=== PATIENT | male | born 1935 | race Caucasian/White ===

== ENCOUNTER → 2017-04-13 09:47 | Outpatient (CLI) | payer MEDICARE, OTHER, SELFPAY ==
--- NOTE | 2017-04-13 09:59 | PCM.CR.HP2 ---
CR - History & Physical - General Arrival date:: 04/13/17 Arrival time:: 09:59 Date of Admission: 04/13/17 Referring Physician: Dr. Grady Schmidt Primary Diagnosis: MCABGx3 at [facility] - History of Present Cardiac Event Onset Date: Enter Onset Date of cardiac illnesses in Comment field below CABG:: Yes - 01/16/2017 @ [facility] Type of Symptoms:: Atrial fibrillation, acute systolic heart failure, and multi-vessel coroanry disease. Seen by DR. Schmidt locally and transfer to Dr. Rakesh Goff at [facility]. Interventions with present event:: Diagnostic procedures, to a [facility] and subsequent CABG Were there any complications?: Transfer to [facility] for rehab then home. - Medications Home Medications: Ambulatory Orders Medication Instructions Recorded Furosemide [Lasix] 40 mg PO DAILY 01/06/17 Aspirin [Aspirin, Baby] 81 mg PO DAILY 01/24/17 Acetaminophen [Tylenol] 1,000 mg PO Q8H PRN PRN tablet 02/02/17 Atorvastatin Calcium [Lipitor] 40 mg PO QHS #30 02/02/17 Carvedilol [Coreg] 3.125 mg PO BID #60 02/02/17 Iron Polysaccharide Complex 150 mg PO DAILYCM #30 capsule 02/02/17 [Ferrex 150] Mirtazapine [Remeron] 7.5 mg PO QHS #30 02/02/17 Pramipexole Di-HCl [Mirapex] 1 mg PO QHS #30 02/02/17 Lisinopril [Zestril] 2.5 mg PO DAILY 02/05/17 Amiodarone HCl [Cordarone] 200 mg PO DAILY 04/13/17 Atorvastatin Calcium [Lipitor] 40 mg PO QHS 04/13/17 Pramipexole Di-HCl [Mirapex] 1 mg PO 04/13/17 - Allergies Allergies/Adverse Reactions: Allergies Sulfa (Sulfonamide Antibiotics) Allergy (Verified 02/05/17 10:23) Other SKIN SLOUGHING - Sleep Disorder Evaluation Hx of Sleep Apnea: No Do you snore loudly (louder than talking or can be heard through closed doors)?: Yes Do you often feel tired/ fatigued/ sleepy during daytime?: Yes Has anyone observed you stop breathing during sleep?: Yes History of Hypertension (for STOP score): Yes STOP Results: Positive Advanced Directives - Advanced Directives Power of Management Supervisor: No Living Will: No Advance Directives Information Provided: Yes Advance Directives on File: No DNR Order?:: No Past Medical History - Problems and Co-Morbidities Problems & Co-Morbidities: Smoking - former smoker quit in 1992; 1ppd for since age 18 yr old., Dyslipidemia, Hypertension - Past Medical Illness Past Medical Illness: Kidney/Renal Problems - chronic kidney disease Other Medical Illnesses:: atrophy of prostate, diverticulitis of colon, restless leg syndrome. - Past Cardiac Illness Past Cardiac Illness: Arrhythmias - poraxysmal atrial fibrillation, Ejection Fraction - 44% per ECHO 02/12/2017, Coronary Artery Disease - Other Other: Vision/Eye Problems - Cardiology Procedures/Interventions Cardiology Procedures/Interventions: Angioplasty, Heart Catheterization, Echocardiogram - Past Surgical History Surgical History: coronary bypass surgery - x 3. - Family History Summary Additional Family History: Mother-HTN, Father-COPD, Brother-Arthritis, Ischemic Heart Disease, CABG. Review of Systems - Review of Systems Hints: Right click = Denies (Slash). Left click = Reports ([place]) Review of Present Symptoms: Reports: Wound Healing, Dizziness/Lightheadedness - once in a blue hale, if stand to quickly from seated position., Fatigue, Heart Arrhythmia/Irregularities - paroxysmal atrial fibrillation resolved on own. Has been examined twice and remians in normal rhythm., Appetite - Normal, Appetite - Special Diet - watch sodium intake; dietitian in [facility] gave guidelines for cardiac diet., Sleep - Normal. Denies: Shortness of Breath at Rest, Shortness of Breath with Exertion - prior to surgery, very short of breath and was treating for swollen ankles., Operative Discomfort, Sexual Changes Risk Factor Assessment - Chief Complaint Chief Complaint: Patient presents to cardiac rehab today on the referral from Dr. Rakesh Goff in [place]. Patient is treate locally by Dr. Grady Schmidt and Dr. Eric Johns III. Patient is a pleasant 81 yr old accompanied by his today. - Pulse Pulse Rate: 60 Pulse Rhythm: Regular - Hypertension How long have you been treated?: no past history, recently controlled. Blood Pressure Sitting - Right Arm: 118/60 - Diabetes Nutrition Referral for Diabetes: No - Obesity Height: 5 ft 11 in Weight:: 76 kg Weight in Pounds: 167.6 lbs Body Mass Index (BMI): 23.3 Nutritional Referral for Obesity: No - Physical Inactivity Physical Inactivity: Reg Exercise 30 min/day - stretching and bands given instruction from Rehab, climbs stairs, active lifestyle. - Risk Stratification Risk Guidelines: Lowest Risk: Risk Factor for Smoking, Risk Factor for Dyslipidemia, Risk Factor for Diabetes, Risk Factor for Obesity, Risk Factor for Hypertension, Risk Factor for Depression, Moderate Risk: Risk Factor for Sedentary Lifestyle - For Smoking Smoking Risk Guidelines: Smoking Low Risk: None or quit greater than 6 months ago. Smoking Moderate Risk: Smoker or quit 6 months or less ago. Smoking High Risk: Smoker - For Dyslipidemia Dyslipidemia Risk Guidelines: Low Risk: Moderate Risk: High Risk: 15-25% fat 25.1-29% fat >/= 30% fat. <7% sat fat 7-9% sat fat >9% sat fat. <150 mg chol 150-299 mg chol >/= 300 mg chol. LDL <100 LDL 100-129 LDL >/= 130. Chol/HDL ratio <5.0 Chol/HDL ratio 5.0-6.0 Chol/HDL ratio >6.0. Triglycerides <100 Triglycerides 100-149 Triglycerides >/= 150 - For Diabetes Mellitus Diabetes Risk Guidelines: Diabetes Low Risk: HgA1c <6.5% and/or FBG <120. Diabetes Moderate Risk: HgA1c 6.6-7.9% and/or FBG 120-180. Diabetes High Risk: HgA1c >/= 8% and/or FBG >180 - For Obesity/Overweight Obesity/Overweight Risk Guidelines: Obesity Low Risk: BMI <25.0. Obesity Moderate Risk: BMI 25-29.9. Obesity High Risk: BMI >/= 30.0 - For Hypertension Hypertension Risk Guidelines: Hypertension Low Risk: Systolic <120 and Diastolic <80. Hypertension Moderate Risk: Systolic 120-139 and Diastolic 80-89. Hypertension High Risk: Systolic >/= 140 and Diastolic >/= 90 - For Sedentary Lifestyle Sedentary Lifestyle Risk Guidelines: Sedentary Lifestyle Low Risk: >/= 1,500 kcal/week. Sedentary Lifestyle Moderate Risk: 700-1,499 kcal/week. Sedentary Lifestyle High Risk: < 700 kcal/week - For Depression Depression Risk Guidelines: Depression Low Risk: Not clinically depressed. Depression Moderate Risk: Mildly depressed. Depression High Risk: Clinically depressed Social History - Smoking History Smoking Status: Former smoker Hx Smoking Cessation Date: 04/07/1992 Hx Tobacco Use: Yes Hx Smoking Exposure: No - Alcohol Use Alcohol Usage: No - Substance Abuse Hx Substance Use: No - Occupation Occupation (List type of work in comments):: Retired - Hobbies, Recreation, Social Activities Hobbies: Walking, Other - fishing, tinkering with small power equipment Recreational Activities: I am able to engage in most, but not all activities Marital Status - Status Marital Status: - Current Living Arrangements Living Environment:: Spouse - Children How many children do you have?: 5 Do any of your children live nearby?: Yes - 2 live locally - Safety Do you feel safe in your surroundings?: Yes - Assistance Do you need any assistance at home?: none
--- NOTE | 2017-04-13 10:10 | CR.HP_ITS ---
CR - History & Physical - General Arrival date:: 04/13/17 Arrival time:: 09:59 Date of Admission: 04/13/17 Referring Physician: Dr. Grady Schmidt Primary Diagnosis: MCABGx3 at [facility] - History of Present Cardiac Event Onset Date: Enter Onset Date of cardiac illnesses in Comment field below CABG:: Yes - 01/16/2017 @ [facility] Type of Symptoms:: Atrial fibrillation, acute systolic heart failure, and multi- vessel coroanry disease. Seen by DR. Schmidt locally and transfer to Dr. Rakesh Goff at [facility]. Interventions with present event:: Diagnostic procedures, to a [facility] and subsequent CABG Were there any complications?: Transfer to [facility] for rehab then home. - Medications Home Medications: Ambulatory Orders Medication Instructions Recorded Furosemide [Lasix] 40 mg PO DAILY 01/06/17 Aspirin [Aspirin, Baby] 81 mg PO DAILY 01/24/17 Acetaminophen [Tylenol] 1,000 mg PO Q8H PRN PRN tablet 02/02/17 Atorvastatin Calcium [Lipitor] 40 mg PO QHS #30 02/02/17 Carvedilol [Coreg] 3.125 mg PO BID #60 02/02/17 Iron Polysaccharide Complex 150 mg PO DAILYCM #30 capsule 02/02/17 [Ferrex 150] Mirtazapine [Remeron] 7.5 mg PO QHS #30 02/02/17 Pramipexole Di-HCl [Mirapex] 1 mg PO QHS #30 02/02/17 Lisinopril [Zestril] 2.5 mg PO DAILY 02/05/17 Amiodarone HCl [Cordarone] 200 mg PO DAILY 04/13/17 Atorvastatin Calcium [Lipitor] 40 mg PO QHS 04/13/17 Pramipexole Di-HCl [Mirapex] 1 mg PO 04/13/17 - Allergies Allergies/Adverse Reactions: Allergies Sulfa (Sulfonamide Antibiotics) Allergy (Verified 02/05/17 10:23) Other SKIN SLOUGHING - Sleep Disorder Evaluation Hx of Sleep Apnea: No Do you snore loudly (louder than talking or can be heard through closed doors)? : Yes Do you often feel tired/ fatigued/ sleepy during daytime?: Yes Has anyone observed you stop breathing during sleep?: Yes History of Hypertension (for STOP score): Yes STOP Results: Positive Advanced Directives - Advanced Directives Power of Environmental Services Specialist: No Living Will: No Advance Directives Information Provided: Yes Advance Directives on File: No DNR Order?:: No Past Medical History - Problems and Co-Morbidities Problems & Co-Morbidities: Smoking - former smoker quit in 1992; 1ppd for since age 18 yr old., Dyslipidemia, Hypertension - Past Medical Illness Past Medical Illness: Kidney/Renal Problems - chronic kidney disease Other Medical Illnesses:: atrophy of prostate, diverticulitis of colon, restless leg syndrome. - Past Cardiac Illness Past Cardiac Illness: Arrhythmias - poraxysmal atrial fibrillation, Ejection Fraction - 44% per ECHO 02/12/2017, Coronary Artery Disease - Other Other: Vision/Eye Problems - Cardiology Procedures/Interventions Cardiology Procedures/Interventions: Angioplasty, Heart Catheterization, Echocardiogram - Past Surgical History Surgical History: coronary bypass surgery - x 3. - Family History Summary Additional Family History: Mother-HTN, Father-COPD, Brother-Arthritis, Ischemic Heart Disease, CABG. Review of Systems - Review of Systems Hints: Right click = Denies (Slash). Left click = Reports ([place]) Review of Present Symptoms: Reports: Wound Healing, Dizziness/Lightheadedness - once in a blue hale, if stand to quickly from seated position., Fatigue, Heart Arrhythmia/Irregularities - paroxysmal atrial fibrillation resolved on own. Has been examined twice and remians in normal rhythm., Appetite - Normal, Appetite - Special Diet - watch sodium intake; dietitian in [facility] gave guidelines for cardiac diet., Sleep - Normal. Denies: Shortness of Breath at Rest, Shortness of Breath with Exertion - prior to surgery, very short of breath and was treating for swollen ankles., Operative Discomfort, Sexual Changes Risk Factor Assessment - Chief Complaint Chief Complaint: Patient presents to cardiac rehab today on the referral from Dr. Rakesh Goff in [place]. Patient is treate locally by Dr. Grady Schmidt and Dr. Eric Johns III. Patient is a pleasant 81 yr old accompanied by his today. - Pulse Pulse Rate: 60 Pulse Rhythm: Regular - Hypertension How long have you been treated?: no past history, recently controlled. Blood Pressure Sitting - Right Arm: 118/60 - Diabetes Nutrition Referral for Diabetes: No - Obesity Height: 5 ft 11 in Weight:: 76 kg Weight in Pounds: 167.6 lbs Body Mass Index (BMI): 23.3 Nutritional Referral for Obesity: No - Physical Inactivity Physical Inactivity: Reg Exercise 30 min/day - stretching and bands given instruction from Rehab, climbs stairs, active lifestyle. - Risk Stratification Risk Guidelines: Lowest Risk: Risk Factor for Smoking, Risk Factor for Dyslipidemia, Risk Factor for Diabetes, Risk Factor for Obesity, Risk Factor for Hypertension, Risk Factor for Depression, Moderate Risk: Risk Factor for Sedentary Lifestyle - For Smoking Smoking Risk Guidelines: Smoking Low Risk: None or quit greater than 6 months ago. Smoking Moderate Risk: Smoker or quit 6 months or less ago. Smoking High Risk: Smoker - For Dyslipidemia Dyslipidemia Risk Guidelines: Low Risk: Moderate Risk: High Risk: 15-25% fat 25.1-29% fat >/= 30% fat. <7% sat fat 7-9% sat fat >9% sat fat. <150 mg chol 150-299 mg chol >/= 300 mg chol. LDL <100 LDL 100-129 LDL >/= 130. Chol/HDL ratio <5.0 Chol/HDL ratio 5.0-6.0 Chol/HDL ratio >6.0. Triglycerides <100 Triglycerides 100-149 Triglycerides >/= 150 - For Diabetes Mellitus Diabetes Risk Guidelines: Diabetes Low Risk: HgA1c <6.5% and/or FBG <120. Diabetes Moderate Risk: HgA1c 6.6-7.9% and/or FBG 120-180. Diabetes High Risk: HgA1c >/= 8% and/or FBG >180 - For Obesity/Overweight Obesity/Overweight Risk Guidelines: Obesity Low Risk: BMI <25.0. Obesity Moderate Risk: BMI 25-29.9. Obesity High Risk: BMI >/= 30.0 - For Hypertension Hypertension Risk Guidelines: Hypertension Low Risk: Systolic <120 and Diastolic <80. Hypertension Moderate Risk: Systolic 120-139 and Diastolic 80-89. Hypertension High Risk: Systolic >/= 140 and Diastolic >/= 90 - For Sedentary Lifestyle Sedentary Lifestyle Risk Guidelines: Sedentary Lifestyle Low Risk: >/= 1 ,500 kcal/week. Sedentary Lifestyle Moderate Risk: 700-1,499 kcal/week. Sedentary Lifestyle High Risk: < 700 kcal/week - For Depression Depression Risk Guidelines: Depression Low Risk: Not clinically depressed. Depression Moderate Risk: Mildly depressed. Depression High Risk: Clinically depressed Social History - Smoking History Smoking Status: Former smoker Hx Smoking Cessation Date: 04/07/1992 Hx Tobacco Use: Yes Hx Smoking Exposure: No - Alcohol Use Alcohol Usage: No - Substance Abuse Hx Substance Use: No - Occupation Occupation (List type of work in comments):: Retired - Hobbies, Recreation, Social Activities Hobbies: Walking, Other - fishing, tinkering with small power equipment Recreational Activities: I am able to engage in most, but not all activities Marital Status - Status Marital Status: - Current Living Arrangements Living Environment:: Spouse - Children How many children do you have?: 5 Do any of your children live nearby?: Yes - 2 live locally - Safety Do you feel safe in your surroundings?: Yes - Assistance Do you need any assistance at home?: none
--- NOTE | 2017-04-13 10:12 | CR.ITP_ITS ---
Exercise - Initial Assessment - Visit Date of Eval: 04/13/17 - Stages of Change Stages of Change:: Action - Exercise Prescription Mode:: Treadmill, Rower, Airdyne, NuStep Angina with exercise?: No Target Heart Rate:: 97-104 - Hypertension Do any of the following apply?: Yes Resting Blood Pressure:: 118/60 - Intervention Home Exercise/Activity Goal:: Sitting Time <3 hrs/day - Education Goals:: Warm-up, RPE ABIMAEL Scale, S/S, Safe Exercise, Self-Monitoring - Exercise Program Goals Exercise Program Goals: Aerobic Activity >30 min Nutrition - Initial Assessment - Program Goals Nutrition Program Goals: LDL <70. Total Cholesterol <200. HDL >45. Triglycerides <150. HgbA1C <7%. BMI <25 - Visit Date of Assessment:: 04/13/17 - Stages of Change Stages of Change:: Action - Diabetes Diabetes:: No Insulin: No Non-Insulin Dependent?: No Do you monitor your blood sugar at home?: No - Weight Management Height: 5 ft 11 in Weight:: 76 kg Body Fat %:: 23 - Intervention Referral to dietitian:: No Referral to Diabetic Clinic:: No Will attend diet classes:: Yes - Education Gave educational materials for:: Healthy eating Nutrition - 30-Day Assessment - Program Goals Nutrition Program Goals: LDL <70. Total Cholesterol <200. HDL >45. Triglycerides <150. HgbA1C <7%. BMI <25 - Diabetes Diabetes:: No Nutrition - 60-Day Assessment - Program Goals Nutrition Program Goals: LDL <70. Total Cholesterol <200. HDL >45. Triglycerides <150. HgbA1C <7%. BMI <25 - Diabetes Diabetes:: No Nutrition - 90-Day Assessment - Program Goals Nutrition Program Goals: LDL <70. Total Cholesterol <200. HDL >45. Triglycerides <150. HgbA1C <7%. BMI <25 - Diabetes Diabetes:: No Nutrition - Final Assessment - Program Goals Nutrition Program Goals: LDL <70. Total Cholesterol <200. HDL >45. Triglycerides <150. HgbA1C <7%. BMI <25 - Diabetes Diabetes:: No Tobacco - Initial Assessment - Program Goals Tobacco Program Goals: Complete smoking cessation. Attend education classes. Improve Knowledge Test score - Stage of Change Stages of Change:: Action - Learning Barriers Learning Barriers: Vision, Ready to Learn - Family Support Do you have family support?: Yes - Tobacco Use Tobacco Use: Non-smoker How long ago did you quit using tobacco products?: Greater than or equal to 6 months ago - 04/07/1992 Do you use smokeless tobacco?: No - Intervention Smoking Cessation Referral:: No Individual Education/Counseling:: No Education Schedule Given:: Yes - Education Gave educational material for:: Coronary artery disease, Risk factors, Sexuality , Medical compliance, Cardiac A&P, Angina signs & symptoms Psychosocial - Initial Assess - Target Goals Target Goals: Assess presence or absence of depression. Using a valid screening tool, maximizes coping skills. Positive support system - Stages of Change Stages of Change:: Action - Psychosocial Test Tool Used:: HANDS Depression Questionnaire - Intervention PS - Interventions: Yes Attend Stress Management Classes, No Referral to Mental Health, No Referral to [facility] Case Management, No Referral to Physician, No Uses Stress Management Skills - Education Gave educational materials for:: Coping techniques, Signs & symptoms of depression, Stress management, Relaxation techniques - Patient/Program Goal Preventative Medication(s):: Aspirin, VICTOR MANUEL inhibitor, Clopidogrel, Beta graciela, Statin/lipid - Assistive Devices Assistive Devices:: None Fall Risk Assessed:: Yes Patient Health Questionnaire Initial Assessment 1. Little interest or pleasure in doing things: Not at all 2. Feeling down, depressed, or hopeless: Not at all 3. Trouble falling or staying asleep, or sleeping too much: More than half the days 4. Feeling tired or having little energy: Several days 5. Poor appetite or overeating: Not at all 6. Feeling bad about yourself -- or that you are a failure or have let yourself or your family down: Not at all 7. Trouble concentrating on things, such as reading the newspaper or watching television: Not at all 8. Moving or speaking so slowly that other people could have noticed. Or the opposite - being so fidgety or restless that you have been moving around a lot more than usual: Not at all 9. Thoughts that you would be better off , or of hurting yourself in some way: Not at all How difficult have these problems made it for you to do your work, take care of things at home, or get along with other people?: Not difficult at all Total Score: 3 Knowledge Test - Check your knowledge Initial The #1 cause of in the [place] each year is:: Heart disease Which of the following is a common treatment for heart disease?: Bypass surgery The arteries that feed the heart are called:: Coronary arteries HDL cholesterol is known as the good cholesterol.: True What disease increases your risk for heart disease?: Diabetes What food product raises blood cholesterol level the most?: Saturated fat The bad cholesterol in the blood is called:: LDL Hypertension is another word for:: High blood pressure A blood pressure reading of 148/88 is considered normal.: False Exercise will only benefit your health when your heart rate reaches a target level.: True Total Score:: 8 Self-Efficacy Initial Assessment We would like to know how confident you are in doing certain activities. Please select your confidence level for:: Select your confidence level for the following using the scale 1-10 where 1 is not at all confident and 10 is totally confident. Your score is the average of all 6 responses. Fatigue: How confident are you that you can keep the fatigue caused by your disease from interfering with the things you want to do? Select Number: 5 Physical Discomfort or Pain: How confident are you that you can keep the physical discomfort or pain of your disease from interfering with the things you want to do? Select Number: 10 Emotional Distress: How confident are you that you can keep the emotional distress caused by your disease from interfering with the things you want to do? Select Number: 10 Other Symptoms or Health Problems: How confident are you that you can keep other symptoms or health problems from interfering with the things you want to do? Select Number: 10 Different Tasks and Activities: How confident are you that you can do the different tasks and activities needed to manage your health condition so as to reduce your need to see a doctor? Select Number: 5 Medication: How confident are you that you can do things other than just taking medication to reduce how much your illness affects your everyday life? Select Number: 8 Total Score:: 8 Nutrition Survey - Nutrition Survey Instructions Scoring Instructions: Scoring is as follows: Yes = 1 points. No = 0 point. Patient score that is >/=12 is considered to be at potential nutritional risk and could benefit from a referral to a registered dietitian. - Nutrition Survey Initial Have you lost >10 lbs over the past 2 months without trying?: Yes Are you following a special diet at home for diabetes, low fat, or low salt?: No Are you interested in meeting with a dietitian for help understanding your diet? : No Do you eat less than 3 meals a day?: No Do you eat fatty meats (chang, sausage, ribs, etc), fried foods, desserts, large amounts of salad dressings, margarine, butter, or cheese most days?: No Do you have food allergies? [Enter types in comment field]: No Do you eat in restaurants more than 3 times a week?: No Do you season food with salt, seasoning salt, or garlic salt?: No Do you used canned, boxed, frozen meals, or soups, seasoning packets?: Yes Total Score:: 2 Cardiac Rehabilitation Goals - Cardiac Rehab Goals Cardiac Rehabilitation Goals: 1. Maintain the individual as the primary focus of care. 2. To improve the patient's quality of life. 3. Identification of cardiac risk factors and provide cardiac risk factor management. 4. Enhance the psychosocial status of the patient. 5. Reconditioning enough to allow the patient to resume customary activities. 6. Control symptoms of cardiac disease - Scale Scale for measuring improvement of personal goals: Enter appropriate number in Comments. 2 = Unchanged. 3 = Slightly Better. 4 = Moderate Improvement. 5 = Met my Goal Initial Assessment Personal Goals: 30-day Re-assessment: Improve energy level, Participate in home exercise program, Improve muscle strength and endurance, Control risk factors ( learn risk factor modification)
[2017-04-13 10:30] VITALS: BP 118/60; PULSE 60; BMI 23.3
[2017-04-13 11:08] VITALS: BP 118/60
== END ==
PROVIDERS: Family Provider Family Medicine; PCP Family Medicine; Visit Provider Thoracic Surgery (Cardiothoracic Vascular Surgery)
DX: I25.10 Atherosclerotic heart disease of native coronary artery without angina pectoris (principal); I48.91 Unspecified atrial fibrillation; I50.21 Acute systolic (congestive) heart failure

== ENCOUNTER 2017-05-06 10:15 | Outpatient (RCR) | payer MEDICARE, OTHER, SELFPAY ==
--- NOTE | 2017-05-06 13:39 | PCM.CR.ITP ---
Exercise - Initial Assessment - Stages of Change Stages of Change:: Action - Exercise Prescription Mode:: Treadmill, Rower, Airdyne, NuStep Angina with exercise?: No Target Heart Rate:: 97-104 - Hypertension Do any of the following apply?: Yes - Intervention Home Exercise/Activity Goal:: Sitting Time <3 hrs/day - Education Goals:: Warm-up, RPE ABIMAEL Scale, S/S, Safe Exercise, Self-Monitoring - Exercise Program Goals Exercise Program Goals: Aerobic Activity >30 min Exercise - 30-day Assessment - Visit Date of Eval: 05/06/17 Session #:: 10 - Stages of Change Stages of Change:: Action - Exercise Prescription Mode:: Treadmill, Airdyne, NuStep Frequency (x/week): 3 Duration:: 30 METs - Progression: 0.5-1 MET as tolerated: 3.3 Target Heart Rate:: 111-118 - Hypertension Resting Blood Pressure:: 140/60 Peak Exercise Blood Pressure:: 150/70 Medication Changes:: No - Intervention Home Exercise/Activity Goal:: Moderate Exercise 30 min/day x 5 days/wk - Education Goals:: Warm-up, RPE ABIMAEL Scale, S/S, Safe Exercise, Self-Monitoring - Exercise Program Goals Exercise Program Goals: Aerobic Activity >30 min Exercise - Final/Discharge - Hypertension Do any of the following apply?: Yes Nutrition - Initial Assessment - Program Goals Nutrition Program Goals: LDL <70. Total Cholesterol <200. HDL >45. Triglycerides <150. HgbA1C <7%. BMI <25 - Stages of Change Stages of Change:: Action - Diabetes Diabetes:: No Non-Insulin Dependent?: No Do you monitor your blood sugar at home?: No - Weight Management Body Fat %:: 23 Total Score:: 2 - Intervention Referral to dietitian:: No Referral to Diabetic Clinic:: No Will attend diet classes:: Yes - Education Gave educational materials for:: Healthy eating Nutrition - 30-Day Assessment - Program Goals Nutrition Program Goals: LDL <70. Total Cholesterol <200. HDL >45. Triglycerides <150. HgbA1C <7%. BMI <25 - Visit Date of Eval: 05/06/17 - session # 10 - Stages of Change Stages of Change:: Action - Lipids Has the patient seen the dietitian?: No - Diabetes Diabetes:: No Insulin: No Non-Insulin Dependent?: No - Weight Management Weight:: 74.843 kg - maintaining - Intervention Referral to dietitian:: No Referral to Diabetic Clinic:: No Will attend diet classes:: Yes - Education Attended class for:: Healthy eating Nutrition - 60-Day Assessment - Program Goals Nutrition Program Goals: LDL <70. Total Cholesterol <200. HDL >45. Triglycerides <150. HgbA1C <7%. BMI <25 - Diabetes Diabetes:: No Insulin: No Non-Insulin Dependent?: No - Intervention Referral to dietitian:: No Referral to Diabetic Clinic:: No Will attend diet classes:: Yes - Education Attended class for:: Healthy eating Nutrition - 90-Day Assessment - Program Goals Nutrition Program Goals: LDL <70. Total Cholesterol <200. HDL >45. Triglycerides <150. HgbA1C <7%. BMI <25 - Diabetes Diabetes:: No Insulin: No Non-Insulin Dependent?: No - Intervention Referral to dietitian:: No Referral to Diabetic Clinic:: No Will attend diet classes:: Yes - Education Attended class for:: Healthy eating Nutrition - Final Assessment - Program Goals Nutrition Program Goals: LDL <70. Total Cholesterol <200. HDL >45. Triglycerides <150. HgbA1C <7%. BMI <25 - Diabetes Diabetes:: No Insulin: No Non-Insulin Dependent?: No - Weight Management Body Fat %:: 23 Total Score:: 2 - Intervention Referral to dietitian:: No Referral to Diabetic Clinic:: No Will attend diet classes:: Yes Tobacco - Initial Assessment - Program Goals Tobacco Program Goals: Complete smoking cessation. Attend education classes. Improve Knowledge Test score - Stage of Change Stages of Change:: Action - Learning Barriers Learning Barriers: Vision, Ready to Learn Total Score:: 8 - Family Support Do you have family support?: Yes - Tobacco Use Tobacco Use: Non-smoker How long ago did you quit using tobacco products?: Greater than or equal to 6 months ago - 04/07/1992 Do you use smokeless tobacco?: No - Intervention Smoking Cessation Referral:: No Individual Education/Counseling:: No Education Schedule Given:: Yes - Education Gave educational material for:: Coronary artery disease, Risk factors, Sexuality, Medical compliance, Cardiac A&P, Angina signs & symptoms Tobacco - 30-Day Assessment - Program Goals Tobacco Program Goals: Complete smoking cessation. Attend education classes. Improve Knowledge Test score - Stage of Change Stages of Change:: Action - Learning Barriers Learning Barriers: Participates in education - Family Support Do you have family support?: Yes - Tobacco Use Tobacco Use: Non-smoker Do you use smokeless tobacco?: No - Intervention Smoking Cessation Referral:: No Individual Education/Counseling:: No Education Schedule Given:: Yes - Education Attended class for:: Coronary artery disease, Risk factors, Sexuality, Medical compliance, Cardiac A&P, Angina signs & symptoms Tobacco - 60-Day Assessment - Program Goals Tobacco Program Goals: Complete smoking cessation. Attend education classes. Improve Knowledge Test score - Family Support Do you have family support?: Yes - Tobacco Use Do you use smokeless tobacco?: No - Intervention Smoking Cessation Referral:: No Individual Education/Counseling:: No Education Schedule Given:: Yes - Education Attended class for:: Coronary artery disease, Risk factors, Sexuality, Medical compliance, Cardiac A&P, Angina signs & symptoms Tobacco - 90-Day Assessment - Program Goals Tobacco Program Goals: Complete smoking cessation. Attend education classes. Improve Knowledge Test score - Family Support Do you have family support?: Yes - Tobacco Use Do you use smokeless tobacco?: No - Intervention Smoking Cessation Referral:: No Individual Education/Counseling:: No Education Schedule Given:: Yes - Education Attended class for:: Coronary artery disease, Risk factors, Sexuality, Medical compliance, Cardiac A&P, Angina signs & symptoms Tobacco - Final Assessment - Program Goals Tobacco Program Goals: Complete smoking cessation. Attend education classes. Improve Knowledge Test score - Learning Barriers Cardiac Knowledge Test Score:: 8 - Family Support Do you have family support?: Yes - Tobacco Use Do you use smokeless tobacco?: No - Intervention Smoking Cessation Referral:: No Individual Education/Counseling:: No Education Schedule Given:: Yes Psychosocial - Initial Assess - Target Goals Target Goals: Assess presence or absence of depression. Using a valid screening tool, maximizes coping skills. Positive support system - Stages of Change Stages of Change:: Action - Psychosocial Test Tool Used:: HANDS Depression Questionnaire Self-Efficacy Score:: 8 - Intervention PS - Interventions: Yes Attend Stress Management Classes, No Referral to Mental Health, No Referral to [facility] Case Management, No Referral to Physician, No Uses Stress Management Skills - Education Gave educational materials for:: Coping techniques, Signs & symptoms of depression, Stress management, Relaxation techniques - Patient/Program Goal Preventative Medication(s):: Aspirin, VICTOR MANUEL inhibitor, Clopidogrel, Beta graciela, Statin/lipid - Assistive Devices Assistive Devices:: None Fall Risk Assessed:: Yes Psychosocial - 30-Day Assess - Target Goals Target Goals: Assess presence or absence of depression. Using a valid screening tool, maximizes coping skills. Positive support system - Stages of Change Stages of Change:: Action - Psychosocial Test Tool Used:: HANDS Depression Questionnaire Self-Efficacy Score:: 8 - Intervention PS - Interventions: Yes Attend Stress Management Classes, No Referral to Mental Health, No Referral to [facility] Case Management, No Referral to Physician, No Uses Stress Management Skills - Education Attended classes for:: Coping techniques, Signs & symptoms of depression, Stress management, Relaxation techniques - Patient/Program Goal Preventative Medication(s):: Aspirin, VICTOR MANUEL inhibitor, Clopidogrel, Beta graciela, Statin/lipid - Assistive Devices Assistive Devices:: None Fall Risk Assessed:: Yes Psychosocial - 60-Day Assess - Target Goals Target Goals: Assess presence or absence of depression. Using a valid screening tool, maximizes coping skills. Positive support system - Psychosocial Test Tool Used:: HANDS Depression Questionnaire Self-Efficacy Score:: 8 - Education Attended classes for:: Coping techniques, Signs & symptoms of depression, Stress management, Relaxation techniques - Patient/Program Goal Preventative Medication(s):: Aspirin, VICTOR MANUEL inhibitor, Clopidogrel, Beta graciela, Statin/lipid - Assistive Devices Assistive Devices:: None Fall Risk Assessed:: Yes Psychosocial - 90-Day Assess - Target Goals Target Goals: Assess presence or absence of depression. Using a valid screening tool, maximizes coping skills. Positive support system - Psychosocial Test Tool Used:: HANDS Depression Questionnaire Self-Efficacy Score:: 8 - Education Attended classes for:: Coping techniques, Signs & symptoms of depression, Stress management, Relaxation techniques - Patient/Program Goal Preventative Medication(s):: Aspirin, VICTOR MANUEL inhibitor, Clopidogrel, Beta graciela, Statin/lipid - Assistive Devices Assistive Devices:: None Fall Risk Assessed:: Yes Psychosocial - Final Assessmen - Target Goals Target Goals: Assess presence or absence of depression. Using a valid screening tool, maximizes coping skills. Positive support system - Psychosocial Test Tool Used:: HANDS Depression Questionnaire Self-Efficacy Score:: 8 - Patient/Program Goal Preventative Medication(s):: Aspirin, VICTOR MANUEL inhibitor, Clopidogrel, Beta graciela, Statin/lipid - Assistive Devices Assistive Devices:: None Fall Risk Assessed:: Yes Patient Health Questionnaire 30-Day Re-eval Assessment 1. Little interest or pleasure in doing things: Not at all 2. Feeling down, depressed, or hopeless: Not at all 3. Trouble falling or staying asleep, or sleeping too much: Several days 4. Feeling tired or having little energy: Not at all 5. Poor appetite or overeating: Not at all 6. Feeling bad about yourself -- or that you are a failure or have let yourself or your family down: Not at all 7. Trouble concentrating on things, such as reading the newspaper or watching television: Not at all 8. Moving or speaking so slowly that other people could have noticed. Or the opposite - being so fidgety or restless that you have been moving around a lot more than usual: Not at all 9. Thoughts that you would be better off , or of hurting yourself in some way: Not at all How difficult have these problems made it for you to do your work, take care of things at home, or get along with other people?: Not difficult at all Total Score: 1 Self-Efficacy 30-Day Re-eval Assessment We would like to know how confident you are in doing certain activities. Please select your confidence level for:: Select your confidence level for the following using the scale 1-10 where 1 is not at all confident and 10 is totally confident. Your score is the average of all 6 responses. Fatigue: How confident are you that you can keep the fatigue caused by your disease from interfering with the things you want to do? Select Number: 7 Physical Discomfort or Pain: How confident are you that you can keep the physical discomfort or pain of your disease from interfering with the things you want to do? Select Number: 10 Emotional Distress: How confident are you that you can keep the emotional distress caused by your disease from interfering with the things you want to do? Select Number: 10 Other Symptoms or Health Problems: How confident are you that you can keep other symptoms or health problems from interfering with the things you want to do? Select Number: 10 Different Tasks and Activities: How confident are you that you can do the different tasks and activities needed to manage your health condition so as to reduce your need to see a doctor? Select Number: 8 Medication: How confident are you that you can do things other than just taking medication to reduce how much your illness affects your everyday life? Select Number: 10 Total Score:: 9 Cardiac Rehabilitation Goals - Cardiac Rehab Goals Cardiac Rehabilitation Goals: 1. Maintain the individual as the primary focus of care. 2. To improve the patient's quality of life. 3. Identification of cardiac risk factors and provide cardiac risk factor management. 4. Enhance the psychosocial status of the patient. 5. Reconditioning enough to allow the patient to resume customary activities. 6. Control symptoms of cardiac disease - Scale Scale for measuring improvement of personal goals: Enter appropriate number in Comments. 2 = Unchanged. 3 = Slightly Better. 4 = Moderate Improvement. 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
[2017-05-06 13:43] VITALS: BP 140/60; BP 150/70
== END 2017-05-06 23:59 ==
LOC: CR 10:15
PROVIDERS: Family Provider Family Medicine; PCP Family Medicine; Visit Provider Internal Medicine Cardiovascular Disease
DX: Z95.1 Presence of aortocoronary bypass graft (principal)
CPT/HCPCS: 93798

== ENCOUNTER 2017-06-03 10:15 | Outpatient (RCR) | payer MEDICARE, OTHER, SELFPAY ==
[2017-01-06 21:20] VITALS: BP 123/97
[2017-02-06 15:34] VITALS: BP 68/46
[2017-02-06 18:00] VITALS: BP 90/76
[2017-04-13 10:30] VITALS: BMI 23.3
[2017-05-07 01:04] VITALS: BP 140/60; BP 150/70
--- NOTE | 2017-06-02 09:56 | PCM.CR.ITP ---
Exercise - Initial Assessment - Stages of Change Stages of Change:: Action - Exercise Prescription Mode:: Treadmill, Rower, Airdyne, NuStep Angina with exercise?: No Target Heart Rate:: 97-104 - Hypertension Do any of the following apply?: Yes - Intervention Home Exercise/Activity Goal:: Sitting Time <3 hrs/day - Education Goals:: Warm-up, RPE ABIMAEL Scale, S/S, Safe Exercise, Self-Monitoring - Exercise Program Goals Exercise Program Goals: Aerobic Activity >30 min Exercise - 30-day Assessment - Visit Date of Eval: 05/06/17 - session # 10 - Stages of Change Stages of Change:: Action - Exercise Prescription Mode:: Treadmill, Airdyne, NuStep Frequency (x/week): 3 Duration:: 30 METs - Progression: 0.5-1 MET as tolerated: 3.3 Target Heart Rate:: 111-118 - Intervention Home Exercise/Activity Goal:: Moderate Exercise 30 min/day x 5 days/wk - Education Goals:: Warm-up, RPE ABIMAEL Scale, S/S, Safe Exercise, Self-Monitoring - Exercise Program Goals Exercise Program Goals: Aerobic Activity >30 min Exercise - 60-Day Assessment - Visit Date of Eval: 06/02/17 Session #:: 20 - Stages of Change Stages of Change:: Action - Exercise Prescription Mode:: Treadmill, Airdyne, NuStep Frequency (x/week): 3 Duration:: 30 METs: 5 Target Heart Rate:: 111-118 w/max HR 88 - Hypertension Resting Blood Pressure:: 134/56 Peak Exercise Blood Pressure:: 142/72 Medication Changes:: No - Intervention Home Exercise/Activity Goal:: Moderate Exercise 30 min/day x 5 days/wk - Education Goals:: Warm-up, RPE ABIMAEL Scale, S/S, Safe Exercise, Self-Monitoring - Exercise Program Goals Exercise Program Goals: Aerobic Activity >30 min Exercise - Final/Discharge - Hypertension Do any of the following apply?: Yes Nutrition - Initial Assessment - Program Goals Nutrition Program Goals: LDL <70. Total Cholesterol <200. HDL >45. Triglycerides <150. HgbA1C <7%. BMI <25 - Stages of Change Stages of Change:: Action - Diabetes Diabetes:: No Non-Insulin Dependent?: No Do you monitor your blood sugar at home?: No - Weight Management Body Fat %:: 23 Total Score:: 2 - Intervention Referral to dietitian:: No Referral to Diabetic Clinic:: No Will attend diet classes:: Yes - Education Gave educational materials for:: Healthy eating Nutrition - 30-Day Assessment - Program Goals Nutrition Program Goals: LDL <70. Total Cholesterol <200. HDL >45. Triglycerides <150. HgbA1C <7%. BMI <25 - Stages of Change Stages of Change:: Action - Lipids Has the patient seen the dietitian?: No - Diabetes Diabetes:: No Non-Insulin Dependent?: No - Intervention Referral to dietitian:: No Referral to Diabetic Clinic:: No Will attend diet classes:: Yes - Education Attended class for:: Healthy eating Nutrition - 60-Day Assessment - Program Goals Nutrition Program Goals: LDL <70. Total Cholesterol <200. HDL >45. Triglycerides <150. HgbA1C <7%. BMI <25 - Visit Date of Eval: 06/02/17 - Stages of Change Stages of Change:: Action - Lipids Has the patient seen the dietitian?: No - Diabetes Diabetes:: No Non-Insulin Dependent?: No - Weight Management Weight:: 74.616 kg - loss 1 pound - Intervention Referral to dietitian:: No Referral to Diabetic Clinic:: No Will attend diet classes:: Yes - Education Attended class for:: Healthy eating Nutrition - 90-Day Assessment - Program Goals Nutrition Program Goals: LDL <70. Total Cholesterol <200. HDL >45. Triglycerides <150. HgbA1C <7%. BMI <25 - Lipids Has the patient seen the dietitian?: No - Diabetes Diabetes:: No Non-Insulin Dependent?: No - Intervention Referral to dietitian:: No Referral to Diabetic Clinic:: No Will attend diet classes:: Yes - Education Attended class for:: Healthy eating Nutrition - Final Assessment - Program Goals Nutrition Program Goals: LDL <70. Total Cholesterol <200. HDL >45. Triglycerides <150. HgbA1C <7%. BMI <25 - Diabetes Diabetes:: No Non-Insulin Dependent?: No - Weight Management Body Fat %:: 23 Total Score:: 2 - Intervention Referral to dietitian:: No Referral to Diabetic Clinic:: No Will attend diet classes:: Yes Tobacco - Initial Assessment - Program Goals Tobacco Program Goals: Complete smoking cessation. Attend education classes. Improve Knowledge Test score - Stage of Change Stages of Change:: Action - Learning Barriers Learning Barriers: Vision, Ready to Learn Total Score:: 8 - Family Support Do you have family support?: Yes - Tobacco Use Tobacco Use: Non-smoker How long ago did you quit using tobacco products?: Greater than or equal to 6 months ago - 04/07/1992 Do you use smokeless tobacco?: No - Intervention Smoking Cessation Referral:: No Individual Education/Counseling:: No Education Schedule Given:: Yes - Education Gave educational material for:: Coronary artery disease, Risk factors, Sexuality, Medical compliance, Cardiac A&P, Angina signs & symptoms Tobacco - 30-Day Assessment - Program Goals Tobacco Program Goals: Complete smoking cessation. Attend education classes. Improve Knowledge Test score - Stage of Change Stages of Change:: Action - Learning Barriers Learning Barriers: Participates in education - Family Support Do you have family support?: Yes - Tobacco Use Tobacco Use: Non-smoker Do you use smokeless tobacco?: No - Intervention Smoking Cessation Referral:: No Individual Education/Counseling:: No Education Schedule Given:: Yes - Education Attended class for:: Coronary artery disease, Risk factors, Sexuality, Medical compliance, Cardiac A&P, Angina signs & symptoms Tobacco - 60-Day Assessment - Program Goals Tobacco Program Goals: Complete smoking cessation. Attend education classes. Improve Knowledge Test score - Stage of Change Stages of Change:: Action - Learning Barriers Learning Barriers: Participates in education - Family Support Do you have family support?: Yes - Tobacco Use Tobacco Use: Non-smoker Do you use smokeless tobacco?: No - Intervention Smoking Cessation Referral:: No Individual Education/Counseling:: No Education Schedule Given:: Yes - Education Attended class for:: Coronary artery disease, Risk factors, Sexuality, Medical compliance, Cardiac A&P, Angina signs & symptoms Tobacco - 90-Day Assessment - Program Goals Tobacco Program Goals: Complete smoking cessation. Attend education classes. Improve Knowledge Test score - Family Support Do you have family support?: Yes - Tobacco Use Tobacco Use: Non-smoker Do you use smokeless tobacco?: No - Intervention Smoking Cessation Referral:: No Individual Education/Counseling:: No Education Schedule Given:: Yes - Education Attended class for:: Coronary artery disease, Risk factors, Sexuality, Medical compliance, Cardiac A&P, Angina signs & symptoms Tobacco - Final Assessment - Program Goals Tobacco Program Goals: Complete smoking cessation. Attend education classes. Improve Knowledge Test score - Learning Barriers Cardiac Knowledge Test Score:: 8 - Family Support Do you have family support?: Yes - Tobacco Use Tobacco Use: Non-smoker Do you use smokeless tobacco?: No - Intervention Smoking Cessation Referral:: No Individual Education/Counseling:: No Education Schedule Given:: Yes Psychosocial - Initial Assess - Target Goals Target Goals: Assess presence or absence of depression. Using a valid screening tool, maximizes coping skills. Positive support system - Stages of Change Stages of Change:: Action - Psychosocial Test Tool Used:: HANDS Depression Questionnaire Self-Efficacy Score:: 8 - Education Gave educational materials for:: Coping techniques, Signs & symptoms of depression, Stress management, Relaxation techniques - Patient/Program Goal Preventative Medication(s):: Aspirin, VICTOR MANUEL inhibitor, Clopidogrel, Beta graciela, Statin/lipid - Assistive Devices Assistive Devices:: None Fall Risk Assessed:: Yes Psychosocial - 30-Day Assess - Target Goals Target Goals: Assess presence or absence of depression. Using a valid screening tool, maximizes coping skills. Positive support system - Stages of Change Stages of Change:: Action - Psychosocial Test Tool Used:: HANDS Depression Questionnaire Self-Efficacy Score:: 8 - Patient/Program Goal Preventative Medication(s):: Aspirin, VICTOR MANUEL inhibitor, Clopidogrel, Beta graciela, Statin/lipid - Assistive Devices Assistive Devices:: None Fall Risk Assessed:: Yes Psychosocial - 60-Day Assess - Target Goals Target Goals: Assess presence or absence of depression. Using a valid screening tool, maximizes coping skills. Positive support system - Stages of Change Stages of Change:: Action - Psychosocial Test Tool Used:: HANDS Depression Questionnaire Self-Efficacy Score:: 8 - Intervention PS - Interventions: Yes Attend Stress Management Classes, Yes Uses Stress Management Skills, No Referral to Mental Health, No Referral to [facility] Case Management, No Referral to Physician - Education Attended classes for:: Coping techniques, Signs & symptoms of depression, Stress management, Relaxation techniques - Patient/Program Goal Preventative Medication(s):: Aspirin, VICTOR MANUEL inhibitor, Clopidogrel, Beta graciela, Statin/lipid - Assistive Devices Assistive Devices:: None Fall Risk Assessed:: Yes Psychosocial - 90-Day Assess - Target Goals Target Goals: Assess presence or absence of depression. Using a valid screening tool, maximizes coping skills. Positive support system - Psychosocial Test Tool Used:: HANDS Depression Questionnaire Self-Efficacy Score:: 8 - Education Attended classes for:: Coping techniques, Signs & symptoms of depression, Stress management, Relaxation techniques - Patient/Program Goal Preventative Medication(s):: Aspirin, VICTOR MANUEL inhibitor, Clopidogrel, Beta graciela, Statin/lipid - Assistive Devices Assistive Devices:: None Fall Risk Assessed:: Yes Psychosocial - Final Assessmen - Target Goals Target Goals: Assess presence or absence of depression. Using a valid screening tool, maximizes coping skills. Positive support system - Psychosocial Test Tool Used:: HANDS Depression Questionnaire Self-Efficacy Score:: 8 - Patient/Program Goal Preventative Medication(s):: Aspirin, VICTOR MANUEL inhibitor, Clopidogrel, Beta graciela, Statin/lipid - Assistive Devices Assistive Devices:: None Fall Risk Assessed:: Yes Patient Health Questionnaire 60-Day Re-eval Assessment 1. Little interest or pleasure in doing things: Not at all 2. Feeling down, depressed, or hopeless: Not at all 3. Trouble falling or staying asleep, or sleeping too much: Several days 4. Feeling tired or having little energy: Not at all 5. Poor appetite or overeating: Not at all 6. Feeling bad about yourself -- or that you are a failure or have let yourself or your family down: Not at all 7. Trouble concentrating on things, such as reading the newspaper or watching television: Not at all 8. Moving or speaking so slowly that other people could have noticed. Or the opposite - being so fidgety or restless that you have been moving around a lot more than usual: Not at all 9. Thoughts that you would be better off , or of hurting yourself in some way: Not at all How difficult have these problems made it for you to do your work, take care of things at home, or get along with other people?: Not difficult at all Total Score: 1 Self-Efficacy 60-Day Re-eval Assessment We would like to know how confident you are in doing certain activities. Please select your confidence level for:: Select your confidence level for the following using the scale 1-10 where 1 is not at all confident and 10 is totally confident. Your score is the average of all 6 responses. Fatigue: How confident are you that you can keep the fatigue caused by your disease from interfering with the things you want to do? Select Number: 7 Physical Discomfort or Pain: How confident are you that you can keep the physical discomfort or pain of your disease from interfering with the things you want to do? Select Number: 10 Emotional Distress: How confident are you that you can keep the emotional distress caused by your disease from interfering with the things you want to do? Select Number: 10 Other Symptoms or Health Problems: How confident are you that you can keep other symptoms or health problems from interfering with the things you want to do? Select Number: 10 Different Tasks and Activities: How confident are you that you can do the different tasks and activities needed to manage your health condition so as to reduce your need to see a doctor? Select Number: 8 Medication: How confident are you that you can do things other than just taking medication to reduce how much your illness affects your everyday life? Select Number: 10 Total Score:: 9
[2017-06-02 10:14] VITALS: BP 134/56; BP 142/72
== END 2017-06-03 23:59 ==
LOC: CR 10:15
PROVIDERS: Family Provider Family Medicine; PCP Family Medicine; Visit Provider Internal Medicine Cardiovascular Disease
DX: Z95.1 Presence of aortocoronary bypass graft (principal)
CPT/HCPCS: 93798

== ENCOUNTER 2017-07-03 10:15 | Outpatient (RCR) | payer MEDICARE, OTHER, SELFPAY ==
[2017-06-04 00:49] VITALS: BP 134/56; BP 142/72
[2017-06-29 15:21] VITALS: BP 158/62; BP 160/72
--- NOTE | 2017-06-29 15:22 | CR.ITP_ITS ---
Exercise - Initial Assessment - Stages of Change Stages of Change:: Action - Exercise Prescription Mode:: Treadmill, Rower, Airdyne, NuStep Angina with exercise?: No Target Heart Rate:: 97-104 - Hypertension Do any of the following apply?: Yes - Intervention Home Exercise/Activity Goal:: Sitting Time <3 hrs/day - Education Goals:: Warm-up, RPE ABIMAEL Scale, S/S, Safe Exercise, Self-Monitoring - Exercise Program Goals Exercise Program Goals: Aerobic Activity >30 min Exercise - 30-day Assessment - Visit Date of Eval: 05/06/17 - session # 10 - Stages of Change Stages of Change:: Action - Exercise Prescription Mode:: Treadmill, Airdyne, NuStep Frequency (x/week): 3 Duration:: 30 METs - Progression: 0.5-1 MET as tolerated: 3.3 Target Heart Rate:: 111-118 - Intervention Home Exercise/Activity Goal:: Moderate Exercise 30 min/day x 5 days/wk - Education Goals:: Warm-up, RPE ABIMAEL Scale, S/S, Safe Exercise, Self-Monitoring - Exercise Program Goals Exercise Program Goals: Aerobic Activity >30 min Exercise - 60-Day Assessment - Visit Date of Eval: 06/02/17 - Stages of Change Stages of Change:: Action - Exercise Prescription Mode:: Treadmill, Airdyne, NuStep Frequency (x/week): 3 Duration:: 30 METs: 5 Target Heart Rate:: 111-118 w/max HR 88 - Hypertension Medication Changes:: No - Intervention Home Exercise/Activity Goal:: Moderate Exercise 30 min/day x 5 days/wk - Education Goals:: Warm-up, RPE ABIMAEL Scale, S/S, Safe Exercise, Self-Monitoring - Exercise Program Goals Exercise Program Goals: Aerobic Activity >30 min Exercise - 90-Day Assessment - Visit Date of Eval: 06/29/17 - 06/01/2017-06/26/2017 Session #:: 31 - Stages of Change Stages of Change:: Action - Exercise Prescription Mode:: Treadmill, Airdyne, NuStep Frequency (x/week): 3 Duration:: 30 METs: 6 Target Heart Rate:: 111-118 w/max HR 106 - Hypertension Resting Blood Pressure:: 158/62 Peak Exercise Blood Pressure:: 160/72 Medication Changes:: No - Intervention Home Exercise/Activity Goal:: Moderate Exercise 30 min/day x 5 days/wk - Education Goals:: Warm-up, RPE ABIMAEL Scale, S/S, Safe Exercise, Self-Monitoring - Exercise Program Goals Exercise Program Goals: Aerobic Activity >30 min Exercise - Final/Discharge - Hypertension Do any of the following apply?: Yes Nutrition - Initial Assessment - Program Goals Nutrition Program Goals: LDL <70. Total Cholesterol <200. HDL >45. Triglycerides <150. HgbA1C <7%. BMI <25 - Stages of Change Stages of Change:: Action - Diabetes Diabetes:: No Non-Insulin Dependent?: No Do you monitor your blood sugar at home?: No - Weight Management Body Fat %:: 23 Total Score:: 2 - Intervention Referral to dietitian:: No Referral to Diabetic Clinic:: No Will attend diet classes:: Yes - Education Gave educational materials for:: Healthy eating Nutrition - 30-Day Assessment - Program Goals Nutrition Program Goals: LDL <70. Total Cholesterol <200. HDL >45. Triglycerides <150. HgbA1C <7%. BMI <25 - Stages of Change Stages of Change:: Action - Lipids Has the patient seen the dietitian?: No - Diabetes Diabetes:: No Non-Insulin Dependent?: No - Intervention Referral to dietitian:: No Referral to Diabetic Clinic:: No Will attend diet classes:: Yes - Education Attended class for:: Healthy eating Nutrition - 60-Day Assessment - Program Goals Nutrition Program Goals: LDL <70. Total Cholesterol <200. HDL >45. Triglycerides <150. HgbA1C <7%. BMI <25 - Visit Date of Eval: 06/02/17 - Stages of Change Stages of Change:: Action - Lipids Has the patient seen the dietitian?: No - Diabetes Diabetes:: No Non-Insulin Dependent?: No - Intervention Referral to dietitian:: No Referral to Diabetic Clinic:: No Will attend diet classes:: Yes - Education Attended class for:: Healthy eating Nutrition - 90-Day Assessment - Program Goals Nutrition Program Goals: LDL <70. Total Cholesterol <200. HDL >45. Triglycerides <150. HgbA1C <7%. BMI <25 - Visit Date of Eval: 06/29/17 - 06/01/2017-06/26/2017 - Stages of Change Stages of Change:: Action - Lipids Has the patient seen the dietitian?: No - Diabetes Diabetes:: No Non-Insulin Dependent?: No - Weight Management Weight:: 77.337 kg - Intervention Referral to dietitian:: No Referral to Diabetic Clinic:: No Will attend diet classes:: Yes - Education Attended class for:: Healthy eating Nutrition - Final Assessment - Program Goals Nutrition Program Goals: LDL <70. Total Cholesterol <200. HDL >45. Triglycerides <150. HgbA1C <7%. BMI <25 - Diabetes Diabetes:: No Non-Insulin Dependent?: No - Weight Management Body Fat %:: 23 Total Score:: 2 - Intervention Referral to dietitian:: No Referral to Diabetic Clinic:: No Will attend diet classes:: Yes Tobacco - Initial Assessment - Program Goals Tobacco Program Goals: Complete smoking cessation. Attend education classes. Improve Knowledge Test score - Stage of Change Stages of Change:: Action - Learning Barriers Learning Barriers: Vision, Ready to Learn Total Score:: 8 - Family Support Do you have family support?: Yes - Tobacco Use Tobacco Use: Non-smoker How long ago did you quit using tobacco products?: Greater than or equal to 6 months ago - 04/07/1992 Do you use smokeless tobacco?: No - Intervention Smoking Cessation Referral:: No Individual Education/Counseling:: No Education Schedule Given:: Yes - Education Gave educational material for:: Coronary artery disease, Risk factors, Sexuality , Medical compliance, Cardiac A&P, Angina signs & symptoms Tobacco - 30-Day Assessment - Program Goals Tobacco Program Goals: Complete smoking cessation. Attend education classes. Improve Knowledge Test score - Stage of Change Stages of Change:: Action - Learning Barriers Learning Barriers: Participates in education - Family Support Do you have family support?: Yes - Tobacco Use Tobacco Use: Non-smoker Do you use smokeless tobacco?: No - Intervention Smoking Cessation Referral:: No Individual Education/Counseling:: No Education Schedule Given:: Yes - Education Attended class for:: Coronary artery disease, Risk factors, Sexuality, Medical compliance, Cardiac A&P, Angina signs & symptoms Tobacco - 60-Day Assessment - Program Goals Tobacco Program Goals: Complete smoking cessation. Attend education classes. Improve Knowledge Test score - Stage of Change Stages of Change:: Action - Learning Barriers Learning Barriers: Participates in education - Family Support Do you have family support?: Yes - Tobacco Use Tobacco Use: Non-smoker Do you use smokeless tobacco?: No - Intervention Smoking Cessation Referral:: No Individual Education/Counseling:: No Education Schedule Given:: Yes - Education Attended class for:: Coronary artery disease, Risk factors, Sexuality, Medical compliance, Cardiac A&P, Angina signs & symptoms Tobacco - 90-Day Assessment - Program Goals Tobacco Program Goals: Complete smoking cessation. Attend education classes. Improve Knowledge Test score - Stage of Change Stages of Change:: Action - Learning Barriers Learning Barriers: Participates in education - Family Support Do you have family support?: Yes - Tobacco Use Tobacco Use: Non-smoker Do you use smokeless tobacco?: No - Intervention Smoking Cessation Referral:: No Individual Education/Counseling:: No Education Schedule Given:: Yes - Education Attended class for:: Coronary artery disease, Risk factors, Sexuality, Medical compliance, Cardiac A&P, Angina signs & symptoms Tobacco - Final Assessment - Program Goals Tobacco Program Goals: Complete smoking cessation. Attend education classes. Improve Knowledge Test score - Learning Barriers Cardiac Knowledge Test Score:: 8 - Family Support Do you have family support?: Yes - Tobacco Use Tobacco Use: Non-smoker Do you use smokeless tobacco?: No - Intervention Smoking Cessation Referral:: No Individual Education/Counseling:: No Education Schedule Given:: Yes Psychosocial - Initial Assess - Target Goals Target Goals: Assess presence or absence of depression. Using a valid screening tool, maximizes coping skills. Positive support system - Stages of Change Stages of Change:: Action - Psychosocial Test Tool Used:: HANDS Depression Questionnaire Self-Efficacy Score:: 8 - Intervention PS - Interventions: Yes Attend Stress Management Classes, Yes Uses Stress Management Skills, No Referral to Mental Health, No Referral to [facility] Case Management, No Referral to Physician - Education Gave educational materials for:: Coping techniques, Signs & symptoms of depression, Stress management, Relaxation techniques - Patient/Program Goal Preventative Medication(s):: Aspirin, VICTOR MANUEL inhibitor, Clopidogrel, Beta graciela, Statin/lipid - Assistive Devices Assistive Devices:: None Fall Risk Assessed:: Yes Psychosocial - 30-Day Assess - Target Goals Target Goals: Assess presence or absence of depression. Using a valid screening tool, maximizes coping skills. Positive support system - Stages of Change Stages of Change:: Action - Psychosocial Test Tool Used:: HANDS Depression Questionnaire Self-Efficacy Score:: 8 - Patient/Program Goal Preventative Medication(s):: Aspirin, VICTOR MANUEL inhibitor, Clopidogrel, Beta graciela, Statin/lipid - Assistive Devices Assistive Devices:: None Fall Risk Assessed:: Yes Psychosocial - 60-Day Assess - Target Goals Target Goals: Assess presence or absence of depression. Using a valid screening tool, maximizes coping skills. Positive support system - Stages of Change Stages of Change:: Action - Psychosocial Test Tool Used:: HANDS Depression Questionnaire Self-Efficacy Score:: 8 - Education Attended classes for:: Coping techniques, Signs & symptoms of depression, Stress management, Relaxation techniques - Patient/Program Goal Preventative Medication(s):: Aspirin, VICTOR MANUEL inhibitor, Clopidogrel, Beta graciela, Statin/lipid - Assistive Devices Assistive Devices:: None Fall Risk Assessed:: Yes Psychosocial - 90-Day Assess - Target Goals Target Goals: Assess presence or absence of depression. Using a valid screening tool, maximizes coping skills. Positive support system - Stages of Change Stages of Change:: Action - Psychosocial Test Tool Used:: HANDS Depression Questionnaire Self-Efficacy Score:: 8 - Intervention PS - Interventions: Yes Attend Stress Management Classes, Yes Uses Stress Management Skills, No Referral to Mental Health, No Referral to [facility] Case Management, No Referral to Physician - Education Attended classes for:: Coping techniques, Signs & symptoms of depression, Stress management, Relaxation techniques - Patient/Program Goal Preventative Medication(s):: Aspirin, VICTOR MANUEL inhibitor, Clopidogrel, Beta graciela, Statin/lipid - Assistive Devices Assistive Devices:: None Fall Risk Assessed:: Yes Psychosocial - Final Assessmen - Target Goals Target Goals: Assess presence or absence of depression. Using a valid screening tool, maximizes coping skills. Positive support system - Psychosocial Test Tool Used:: HANDS Depression Questionnaire Self-Efficacy Score:: 8 - Patient/Program Goal Preventative Medication(s):: Aspirin, VICTOR MANUEL inhibitor, Clopidogrel, Beta graciela, Statin/lipid - Assistive Devices Assistive Devices:: None Fall Risk Assessed:: Yes Patient Health Questionnaire 90-Day Re-eval Assessment 1. Little interest or pleasure in doing things: Not at all 2. Feeling down, depressed, or hopeless: Not at all 3. Trouble falling or staying asleep, or sleeping too much: Not at all 4. Feeling tired or having little energy: Not at all 5. Poor appetite or overeating: Not at all 6. Feeling bad about yourself -- or that you are a failure or have let yourself or your family down: Not at all 7. Trouble concentrating on things, such as reading the newspaper or watching television: Not at all 8. Moving or speaking so slowly that other people could have noticed. Or the opposite - being so fidgety or restless that you have been moving around a lot more than usual: Not at all 9. Thoughts that you would be better off , or of hurting yourself in some way: Not at all How difficult have these problems made it for you to do your work, take care of things at home, or get along with other people?: Not difficult at all Total Score: 0 Self-Efficacy 90-Day Re-eval Assessment We would like to know how confident you are in doing certain activities. Please select your confidence level for:: Select your confidence level for the following using the scale 1-10 where 1 is not at all confident and 10 is totally confident. Your score is the average of all 6 responses. Fatigue: How confident are you that you can keep the fatigue caused by your disease from interfering with the things you want to do? Select Number: 9 Physical Discomfort or Pain: How confident are you that you can keep the physical discomfort or pain of your disease from interfering with the things you want to do? Select Number: 9 Emotional Distress: How confident are you that you can keep the emotional distress caused by your disease from interfering with the things you want to do? Select Number: 9 Other Symptoms or Health Problems: How confident are you that you can keep other symptoms or health problems from interfering with the things you want to do? Select Number: 9 Different Tasks and Activities: How confident are you that you can do the different tasks and activities needed to manage your health condition so as to reduce your need to see a doctor? Select Number: 9 Medication: How confident are you that you can do things other than just taking medication to reduce how much your illness affects your everyday life? Select Number: 9 Total Score:: 9 Cardiac Rehabilitation Goals - Cardiac Rehab Goals Cardiac Rehabilitation Goals: 1. Maintain the individual as the primary focus of care. 2. To improve the patient's quality of life. 3. Identification of cardiac risk factors and provide cardiac risk factor management. 4. Enhance the psychosocial status of the patient. 5. Reconditioning enough to allow the patient to resume customary activities. 6. Control symptoms of cardiac disease - Scale Scale for measuring improvement of personal goals: Enter appropriate number in Comments. 2 = Unchanged. 3 = Slightly Better. 4 = Moderate Improvement. 5 = Met my Goal 90-Day Re-eval Assessment Personal Goals: Discharge Reassessment: Participate in home exercise program, Get back to work, or to resume activities faster
== END 2017-07-04 23:59 ==
LOC: CR 10:15
PROVIDERS: Family Provider Family Medicine; PCP Family Medicine; Visit Provider Internal Medicine Cardiovascular Disease
DX: Z95.1 Presence of aortocoronary bypass graft (principal)
CPT/HCPCS: 93798

== ENCOUNTER 2017-07-10 10:15 | Outpatient (RCR) | payer MEDICARE, OTHER, SELFPAY ==
[2017-07-05 00:43] VITALS: BP 158/62; BP 160/72
== END 2017-08-03 23:59 ==
LOC: CR 10:15
PROVIDERS: Family Provider Family Medicine; PCP Family Medicine; Visit Provider Internal Medicine Cardiovascular Disease
DX: Z95.1 Presence of aortocoronary bypass graft (principal)
CPT/HCPCS: 93798

== ENCOUNTER → 2017-10-05 08:42 | Outpatient (CLI) | payer MEDICARE, OTHER, SELFPAY ==
--- NOTE | 2017-10-05 08:45 | ECHOD_ITS ---
Reason For Study: CHF Procedure This was a 2D Doppler, Color Flow transthoracic echocardiogram. Exam performed in department. Left Ventricle Moderately dilated left ventricle. The estimated ejection fraction is 35 %. Stage 2 diastolic dysfunction. There is moderate to severe global hypokinesis of the left ventricle. Right Ventricle Normal size and thickness. Normal systolic function. Atria Normal left atrium. Normal right atrium. Normal atrial septum. Mitral Valve The mitral valve is structurally normal. No prolapse or stenosis seen. Trivial mitral valve insufficiency. Tricuspid Valve Normal tricuspid valve. Trivial tricuspid valve insufficiency. Right ventricular systolic pressure estimated to be 40 mmHg. Mild pulmonary hypertension. Aortic Valve Trisinus/trileaflet aortic valve. Moderate focal aortic valve thickening. Mild diffuse aortic valve calcification. Mild restriction of the aortic valve. Mild aortic stenosis. Mild (1+) aortic valve insufficiency. Pulmonic Valve Normal pulmonic valve. Trivial pulmonic valve insufficiency. Great Vessels Normal aortic root. Normal arch. Normal inferior vena cava. Inferior vena cava collapse with sniff. Pericardium/Pleural No pericardial effusion. MMode/2D Measurements & Calculations LVIDd: 5.3 cm IVSd: 0.74 cm Ao root diam: 3.3 cm LVIDs: 4.1 cm LVPWd: 0.91 cm LA dimension: 3.6 cm RVDd: 3.2 cm FS: 23.1 % LAV(MOD-bp): 40.0 ml EDV(MOD-sp4): 104.7 ml SV(MOD-sp4): 42.2 ml LAV(MOD-bp) Indexed: 20.8 ml/m2 ESV(MOD-sp4): 62.5 ml LAV(MOD-sp2): 42.7 ml EF(MOD-sp4): 40.3 % LAV(MOD-sp4): 35.8 ml LA A4 area: 14.7 cm2 RA A4 area: 15.9 cm2 Time Measurements MV dec time: 0.22 sec Doppler Measurements & Calculations MV E max jeb: 98.0 cm/sec Lat Peak E' Jeb: 8.5 cm/sec Med Peak E' Jeb: 4.8 cm/sec MV A max jeb: 65.5 cm/sec E/E' lat: 11.5 E/E' med: 20.5 MV E/A: 1.5 Ao V2 max: 137.5 cm/sec AI max jeb: 434.8 cm/sec LV V1 max: 95.6 cm/sec Ao max P.6 mmHg AI max P.6 mmHg LV V1 max P.7 mmHg AI dec slope: 264.1 cm/sec2 AI P1/2t: 482.2 msec PA V2 max: 80.6 cm/sec TR max jeb: 294.0 cm/sec TR max P.9 mmHg Interpretation Summary Moderately dilated left ventricle. The estimated ejection fraction is 35 %. Stage 2 diastolic dysfunction. There is moderate to severe global hypokinesis of the left ventricle. Trivial mitral valve insufficiency. Trivial tricuspid valve insufficiency. Right ventricular systolic pressure estimated to be 40 mmHg. Mild pulmonary hypertension. Mild aortic stenosis but may be underestimated due to poor LV function. Mild (1+) aortic valve insufficiency. Compared to echo report dated 02/06/2017, LV function has markedly improved from 0% to 35%. Ordering Physician: Grady Schmidt Referring Physician: TYLOR GAONA Performed By: Bette Gary RDCS
== END ==
PROVIDERS: Family Provider Family Medicine; PCP Family Medicine; Visit Provider Internal Medicine Cardiovascular Disease
DX: I36.1 Nonrheumatic tricuspid (valve) insufficiency (principal)
CPT/HCPCS: 93306

== ENCOUNTER → 2018-06-03 09:26 | Outpatient (CLI) | payer MEDICARE, OTHER, SELFPAY ==
[2018-05-25 09:26] VITALS: BMI 24.7
--- NOTE | 2018-06-03 09:27 | ECHOD_ITS ---
Reason For Study: CAD/ASHD Procedure This was a 2D Doppler, Color Flow transthoracic echocardiogram. Exam performed in department. Left Ventricle Normal size and thickness. The estimated ejection fraction is 55 %. Septal motion consistent with IVCD. Stage 2 diastolic dysfunction. No regional wall motion abnormalities noted. Right Ventricle Mildly dilated right ventricle. Normal systolic function. Atria Normal left atrium. Normal right atrium. Normal atrial septum. Mitral Valve The mitral valve is structurally normal. No prolapse or stenosis seen. Tricuspid Valve Normal tricuspid valve. Trivial tricuspid valve insufficiency. Right ventricular systolic pressure estimated to be 38 mmHg. Mild pulmonary hypertension. Aortic Valve Trisinus/trileaflet aortic valve. Moderate focal aortic valve thickening. Mild restriction of the aortic valve. Mild aortic stenosis. Mild (1+) aortic valve insufficiency. Pulmonic Valve Normal pulmonic valve. Great Vessels Normal aortic root. Mild atherosclerosis of the aortic arch. Normal inferior vena cava. Inferior vena cava collapse with sniff. Pericardium/Pleural No pericardial effusion. MMode/2D Measurements & Calculations LVIDd: 4.5 cm IVSd: 1.2 cm LVOT diam: 2.0 cm LVIDs: 3.5 cm LVPWd: 1.1 cm LVOT area: 3.1 cm2 RVDd: 3.7 cm FS: 21.8 % Ao root diam: 3.2 cm LAV(MOD-bp): 50.8 ml LVAd ap4: 35.7 cm2 LAV(MOD-bp) Indexed: 25.5 ml/m2 EDV(MOD-sp4): 115.4 ml LAV(MOD-sp2): 43.6 ml EDV(sp4-el): 119.9 ml LAV(MOD-sp4): 56.7 ml LVAs ap4: 23.2 cm2 ESV(MOD-sp4): 59.1 ml ESV(sp4-el): 60.1 ml EF(MOD-sp4): 48.8 % EF(sp4-el): 49.9 % SV(MOD-sp4): 56.4 ml SV(sp4-el): 59.8 ml LA A4 area: 20.0 cm2 LA dimension(2D): 3.7 cm RA A4 area: 17.1 cm2 Time Measurements MV dec time: 0.12 sec Doppler Measurements & Calculations MV E max jeb: 101.4 cm/sec Lat Peak E' Jeb: 9.3 cm/sec Med Peak E' Jeb: 5.4 cm/sec MV A max jeb: 83.6 cm/sec E/E' lat: 10.9 E/E' med: 18.7 MV E/A: 1.2 Ao V2 max: 130.4 cm/sec AI max jeb: 448.9 cm/sec LV V1 max: 94.1 cm/sec Ao max P.8 mmHg AI max P.6 mmHg LV V1 max P.5 mmHg Ao V2 mean: 100.3 cm/sec LV V1 mean P.9 mmHg Ao mean P.3 mmHg AI dec slope: 212.9 cm/sec2 LV V1 mean: 63.6 cm/sec Ao V2 VTI: 34.0 cm AI P1/2t: 617.6 msec LV V1 VTI: 23.6 cm VIDAL(I,D): 2.2 cm2 VIDAL(V,D): 2.3 cm2 SV(LVOT): 74.1 ml PA V2 max: 71.5 cm/sec TR max jeb: 278.9 cm/sec TR max P.1 mmHg Interpretation Summary The estimated ejection fraction is 55 %. Stage 2 diastolic dysfunction. Trivial tricuspid valve insufficiency. Right ventricular systolic pressure estimated to be 38 mmHg. Mild aortic stenosis. Mild (1+) aortic valve insufficiency. Compared to echo report dated 10/06/2107, LV function has improved from 35% to 55%. RVSP has remained about the same. Ordering Physician: Grady Schmidt Referring Physician: TYLOR GAONA Performed By: Bette Gary RDCS
== END ==
PROVIDERS: Family Provider Family Medicine; PCP Family Medicine; Referring Provider Internal Medicine Cardiovascular Disease; Visit Provider Internal Medicine Cardiovascular Disease
DX: I25.5 Ischemic cardiomyopathy (principal); I25.10 Atherosclerotic heart disease of native coronary artery without angina pectoris
CPT/HCPCS: 93306

== ENCOUNTER → 2018-09-21 | Outpatient (CLI) | payer MEDICARE, OTHER, SELFPAY ==
[2018-05-25 09:26] VITALS: BMI 24.7
--- NOTE | 2018-09-23 07:50 | PFT ---
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 Respiratory therapy reports good patient effort. Bronchodilators were used during testing. INTERPRETATION: Forced expiration spirometry demonstrates the presence of a moderate large airways obstructive ventilatory defect. There was a significant response to aerosolized bronchodilators, based upon change noted in FVC. Spirograms are of good quality and do not plateau indicating slow emptying of the lungs. Body plethysmography was performed and reveals lung volumes to be within normal limits. Diffusing capacity by single breath CO is also within normal limits at 99% of predicted. IMPRESSION: Partially reversible moderate large airways obstructive ventilatory defect with preserved lung volumes and diffusing capacity.
== END | disposition home or self-care (01) ==
LOC: PSN 12:35
PROVIDERS: Family Provider Family Medicine; PCP Family Medicine; Referring Provider Internal Medicine Cardiovascular Disease; Visit Provider Internal Medicine Cardiovascular Disease
DX: I25.10 Atherosclerotic heart disease of native coronary artery without angina pectoris (principal); I25.5 Ischemic cardiomyopathy; I27.21 Secondary pulmonary arterial hypertension; I36.1 Nonrheumatic tricuspid (valve) insufficiency; I48.0 Paroxysmal atrial fibrillation; I50.22 Chronic systolic (congestive) heart failure; Z95.1 Presence of aortocoronary bypass graft; Z79.899 Other long term (current) drug therapy
CPT/HCPCS: 94060; 94726; 94729

== ENCOUNTER 2018-10-02 11:59 | Observation (INO) | payer MEDICARE, OTHER, SELFPAY ==
[2018-05-25 09:26] VITALS: BMI 24.7
[2018-10-02] VITALS (9 sets, daily range): BP systolic 100–145; BP diastolic 49–64; PULSE 71–90; RESP 16–22; TEMP 37.2–39.6; O2SAT 93–98; BMI 22.1
--- NOTE | 2018-10-02 12:23 | EKG12_ITS ---
Test Reason : GENERAL ILLNESS Blood Pressure : / mmHG Vent. Rate : 084 BPM Atrial Rate : 084 BPM P-R Int : 190 ms QRS Dur : 136 ms QT Int : 414 ms P-R-T Axes : 044 -17 076 degrees QTc Int : 489 ms Normal sinus rhythm Left bundle branch block Abnormal ECG Confirmed by YULIA KESSLER, JA ([id number]), deputy editor in chief IRENA JENKINS ([id number]) on 10/05/2018 11:53:52 AM Referred By: ERICA/VÍCTOR/RU Confirmed By:JA BENDER MD
--- NOTE | 2018-10-02 12:23 | RAD_ITS ---
STUDY: X-RAY CHEST REASON FOR EXAM: Male, 82 years old. Cough and weakness with anorexia TECHNIQUE: AP COMPARISON: 2016 FINDINGS: EKG leads project over the chest. Parenchymal infiltrate of the right lung base is identified. There is pleural fibrotic scarring of the left costophrenic angle. Normal size heart. Sternal wires and mediastinal surgical clips compatible with prior CABG. Atrial appendage clip noted. Normal mediastinum and [place]. Normal visualized pulmonary arteries. There is atherosclerotic calcification of the aortic arch with tortuosity. No acute bony process. There is no demonstrated abnormality of the visualized soft tissue structures of the upper abdomen. RAD/Chest PA and Lateral IMPRESSION: 1. Right lower lobe infiltrate suggesting pneumonia. Electronically Signed: Federico Desir MD at 13:18 EDT , Service support ,
--- NOTE | 2018-10-02 12:30 | ED.VIS.GEN ---
History of Present Illness <AdamMilton - Last Filed: 10/02/18 14:05> Informant: Patient Onset: Days - 3 days Context: Gradual Onset Timing: Continuous Quality: malaise Location: entire body Current Severity: Moderate Maximum Severity: Moderate Worsened by: nothing Relieved by: nothing Associated Symptoms: fever, malaise Narrative: 82-year-old male with a history of coronary artery disease presents to the emergency department with fever. Patient has been running a fever for 3 days. His states that he was acting somewhat confused last evening was after he was asking her about a decoration on their coffee table that patient's states was not there at that time. She does note he has had some confusion at night recently but felt it was worse last night. He has been feeling tired and fatigued and he has had much less of an appetite. He denies chest pain or shortness of breath. He denies coughing or congestion. He denies abdominal pain nausea vomiting or diarrhea. He denies urinary symptoms or rash. Prior similar symptoms: No Recent Illness/Hospitalization: No <Pastor Morales - Last Filed: 10/02/18 14:12> Chief Complaint: General Illness Past Medical History <Milton Medina - Last Filed: 10/02/18 14:05> Surgical History: coronary bypass surgery - x 3. Smoking Status: Former smoker - Family History Maternal Family History: Reports: No pertinent history Paternal Family History: Reports: - - Emphysema Sibling Family History: Reports: Heart Disease - 2 brothers with CAD <Dhaval Moralesony - Last Filed: 10/02/18 14:12> - Allergies and Home Meds Allergies/Adverse Reactions: Allergies Sulfa (Sulfonamide Antibiotics) Allergy (Verified 09/06/18 11:52) Other SKIN SLOUGHING Primary Care Physician: Eric Johns III, MD [Primary Care Provider] - Review of Systems All systems negative except as indicated General: Reports: Chills, Fever, Malaise <Pastor Morales - Last Filed: 10/02/18 14:12> Physical Exam Vital Signs/Narrative: Vital Signs Temp Pulse Resp BP Pulse Ox 10/02/18 12:38 100.7 F H 85 20 H 145/64 H 93 10/02/18 12:25 99.2 F H 85 22 H 145/64 H 93 10/02/18 12:00 99.6 F H 90 18 131/58 H 93 <Medina,Milton - Last Filed: 10/02/18 14:05> Vital Signs/Narrative: Vital Signs Temp Pulse Resp BP Pulse Ox 10/02/18 12:25 99.2 F H 85 22 H 145/64 H 93 10/02/18 12:00 99.6 F H 90 18 131/58 H 93 Inital Vital Signs reviewed: Yes General: Well nourished, Well developed Head: Normocephalic, Atraumatic Eyes: Perrl, EOMI ENT: Moist mucous membranes Neck: Supple, Nontender Cardiovascular: Regular rate, Regular rhythm Respiratory: No distress, CTA bilaterally, Chest nontender Abdomen: Soft, Nontender, Nondistended, Normal bowel sounds, No masses Back: Nontender Extremities: Nontender, No edema Skin: Normal color, No rash Neurological: Alert, Oriented x3 <Pastor Morales - Last Filed: 10/02/18 14:12> Diagnostic/Tx/Re-eval Chest X-Ray - ED: 2 View, Read by ED Physician, Normal, Heart, Mediastinum, Right Infiltrate - Right lower lobe., - - Median sternotomy wires noted. Evidence of valvular surgery. Impressions Chest X-Ray 10/02/18 12:23 IMPRESSION: 1. Right lower lobe infiltrate suggesting pneumonia. Electronically Signed: Federico Desir MD at 13:18 EDT , Service support , 10/02/18 12:23 Chest PA and Lateral [RAD] Stat Laboratory Results 10/02/18 10/02/18 10/02/18 12:35 12:35 12:35 WBC 8.6 RBC 4.37 L Hgb 14.4 Hct 41.8 MCV 95.7 H MCH 33.0 H MCHC 34.4 RDW 12.5 RDW Differential 43.8 Plt Count 144 L MPV 10.7 Immature Gran % (Auto) 0.100 Neut % (Auto) 82.8 H Lymph % (Auto) 6.7 L [place] % (Auto) 10.3 H Eos % (Auto) 0.0 Baso % (Auto) 0.1 Absolute Neuts (auto) 7.1 Absolute Lymphs (auto) 0.57 L Sodium 136 Potassium 3.8 Chloride 98 Carbon Dioxide 28.0 Anion Gap 10 BUN 35 H Creatinine 1.96 H Estim Creat Clear Calc 30.39 Est GFR (MDRD) Af Amer 42 L Est GFR (MDRD) Non-Af 35 L BUN/Creatinine Ratio 17.9 Glucose 126 H Lactic Acid 1.1 Calcium 8.9 - Medical Decision Making Patient is an elderly male sent from urgent care because of change in mental status, fever and shortness of breath. He was not hypoxic. Patient is very warm to touch. He is tachypneic. He denies headache, photophobia, neck pain or neck stiffness. He does report mild nasal congestion. Denies sore throat or postnasal drainage. He denies cough. He denies vomiting or diarrhea. He states he has constipation. Denies dysuria, frequency, urgency or hematuria. Denies skin lesions. Patient appears ill but nontoxic. HEENT exam is unremarkable. Lungs reveal rales right lower lobe with egophony. Heart is regular without murmur, gallop or rub. Abdomen is soft nontender. No dermatologic lesions noted. Neuro exam is nonfocal. With elevated temperature change in mental status sepsis work-up was undertaken. His change in mental status may be secondary to sundowning after speaking with . Patient does have an infiltrate right lower lobe and does meet criteria for sepsis. Awaiting lab results to determine if he has evidence of endorgan injury or elevated lactate. Patient's lactate is normal. There is no evidence of endorgan injury. Therefore patient does not have severe sepsis. Will treat with IV antibiotics and paged hospitalist for admission. <Milton Medina - Last Filed: 10/02/18 14:05> - Medical Decision Making Patient's work-up was remarkable for an elevated creatinine as well as a right lower lobe pneumonia. He meets sepsis criteria. It is a community-acquired pneumonia therefore he was given Levaquin. At this time we feel he stable for the floor. <Pastor Morales - Last Filed: 10/02/18 14:12> ED Disposition <Milton Medina - Last Filed: 10/02/18 14:05> <Pastor Morales - Last Filed: 10/02/18 14:12> - Plan for ED Patient: Disposition: Acute Care Hospital [facility] Diagnosis: Right lower lobe pneumonia, HAZEL (acute kidney injury) Referrals: Eric Johns III, MD [Primary Care Provider] -
[2018-10-02] MEDS: Acetaminophen 325 MG Tablet 650 MG PO ×2 (12:39→21:21)
[2018-10-02 12:50] LABS: Absolute Lymphocyte Count 0.57 X10^3/ul (0.83-4.51); Absolute Neutrophil Count 7.1 X10^3/uL (2.0-7.7); Basophil# 0.01 X10^3/uL; Basophil% 0.1 % (0-1); Differential Indicated SCAN CRITERIA MET; Hematocrit 41.8 % (40-54); Hemoglobin 14.4 g/dl (13.0-16.5); Lymphocyte # 0.57 X10^3/ul (4.0); Lymphocyte % 6.7 % (19-41); Mean Corp Hgb Conc 34.4 g/gl (32-36); Mean Corpuscular Volume 95.7 fL (80-94); Mean Platelet Vol. 10.7 fl (6.2-12.0); Monocyte# 0.88 X10^3/uL; Monocyte% 10.3 % (0-10); Neutrophil % 82.8 % (47-70); POSITIVE COUNT NO; POSITIVE DIFFERENTIAL YES; POSITIVE MORPHOLOGY NO; Platelet Count 144 K/mm3 (150-450); RBC Distribution Width CV 12.5 % (11.6-14.6); RBC Distribution Width SD 43.8 fl (35.1-43.9); Red Blood Count 4.37 M/mm3 (4.6-6.2); White Blood Count 8.6 K/mm3 (4.4-11.0)
[2018-10-02 12:58] LABS: Anion Gap 10 (5-15); BUN 35 mg/dL (7-18); BUN/Creat Ratio 17.9 RATIO (10-20); Calcium,Total 8.9 mg/dL (8.5-10.1); Chloride 98 mmol/L (98-107); Creatinine, Serum 1.96 mg/dL (0.70-1.30); EST Glomerular Filtration Rate 35 mL/min (>60); Est Glom Filt Rate - Afr Amer 42 mL/min (>60); Estimated Creatinine Clearance 30.39 ml/min; Glucose 126 mg/dL (74-106); Potassium 3.8 mmol/L (3.5-5.1); Sodium Level 136 mmol/L (136-145)
[2018-10-02 14:00] LABS: Lactic Acid 1.1 mmol/L (0.4-2.0)
[2018-10-02] MEDS: levoFLOXacin IV 750 MG/150 ML BAG 100 MG IV (14:34)
--- NOTE | 2018-10-02 15:44 | HP.PCM_ITS ---
Problem List (1) Right lower lobe pneumonia Status: Acute Qualifiers: Pneumonia type: due to unspecified organism Qualified Code(s): J18.1 - Lobar pneumonia, unspecified organism History of Present Illness Date of Admission: 10/02/18 Chief Complaint: fever. weakness. The patient is a 82 year old M who was in his normal state of health up until Thursday when he started becoming weak and started having fevers. noted that he was having some hallucinations last night while watching TV. Just was not feeling well went to an urgent care today and was noted be hypoxic and sent over to the emergency room. In the emergency room, patient was not noted to be hypoxic but was febrile. Chest x-ray was ordered and showed what appeared to be a right lower lobe infiltrate and received IV Levaquin. Patient is otherwise remained stable in the emergency room. He denies any cough. I did discuss with the patient that he has some chronic changes on his x-rays appear to be unchanged from 2017 and asked if he was aware of any changes and he states that he was not. 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) CABG x 3 PIÑA-LAD, SVG-OM1, SVG-OM2, Left Atrial esclusion with 45-mm Atriclip 01/16/17 @ [facility] Secondary pulmonary arterial hypertension (Chronic) Atherosclerosis of coronary artery of [place] heart without angina pectoris (Chronic) CABG x 3 PIÑA-LAD, SVG-OM1, SVG-OM2, Left Atrial esclusion with 45-mm Atriclip 01/16/17 Chronic systolic (congestive) heart failure (Chronic) Paroxysmal atrial fibrillation (Chronic) Ischemic cardiomyopathy (Chronic) Insomnia (Chronic) Depression (Chronic) Restless legs syndrome (Chronic) Hyperlipidemia (Chronic) BPH (benign prostatic hyperplasia) (Chronic) Hypertension (Chronic) Hypercholesterolemia (Chronic) Medical History: Medical History (Last Reviewed 10/02/18 @ 15:48 by Shmuel Pardo DO) On amiodarone therapy (Chronic) Z79.899 Dizziness (Acute) R42 Non-rheumatic tricuspid valve insufficiency (Chronic) I36.1 Secondary pulmonary arterial hypertension (Chronic) I27.21 Atherosclerosis of coronary artery of [place] heart without angina pectoris (Chronic) I25.10 CABG x 3 PIÑA-LAD, SVG-OM1, SVG-OM2, Left Atrial esclusion with 45-mm Atriclip 01/16/17 Chronic systolic (congestive) heart failure (Chronic) I50.22 Paroxysmal atrial fibrillation (Chronic) I48.0 Ischemic cardiomyopathy (Chronic) I25.5 Insomnia (Chronic) G47.00 Depression (Chronic) F32.9 Restless legs syndrome (Chronic) Hyperlipidemia (Chronic) E78.5 BPH (benign prostatic hyperplasia) (Chronic) N40.0 Hypertension (Chronic) I10 Hypercholesterolemia (Chronic) E78.00 Atrial fibrillation with RVR (Resolved) I48.91 Allergies Sulfa (Sulfonamide Antibiotics) Allergy (Verified 09/06/18 11:52) Other SKIN SLOUGHING Home Medications: Ambulatory Orders Medication Instructions Recorded Furosemide [Lasix] 40 mg PO DAILY 01/06/17 Aspirin [Aspirin, Baby] 81 mg PO DAILY 01/24/17 Acetaminophen [Tylenol] 1,000 mg PO Q8H PRN PRN tab 02/02/17 Pramipexole Di-HCl [Mirapex] 1 mg PO QHS #30 02/02/17 atorvastatin 40 mg tablet 40 mg PO QDAY 09/21/17 amiodarone 200 mg tablet 100 mg PO DAILY #1 tab 05/25/18 carvedilol 3.125 mg tablet 3.125 mg PO BID #60 tab 09/28/18 Surgical History: Surgical History (Last Reviewed 10/02/18 @ 15:48 by Shmuel Pardo DO) Presence of aortocoronary bypass graft (Chronic) Onset Date: 01/16/17 Z95.1 CABG x 3 PIÑA-LAD, SVG-OM1, SVG-OM2, Left Atrial esclusion with 45-mm Atric lip 01/16/17 @ [facility] Surgical History: coronary bypass surgery - x 3. Psychiatric History: Depression Smoking Status: Former smoker - *Family History Maternal History Items: No pertinent history Paternal History Items: - - Emphysema Sibling History Items: Heart Disease - 2 brothers with CAD Review of Systems Constitutional: Reports: Fever, Malaise, Weakness. Denies: Anorexia Eyes: Denies: Blurred vision, Double vision HEENT: Denies: Head Aches, Sinus Congestion, Sinus Drainage Cardiovascular: Denies: Chest Pain, Palpitations Respiratory: Reports: Shortness of Breath. Denies: Cough Gastrointestinal: Denies: Abdominal Pain, Nausea, Vomiting Genitourinary: Denies: Dysuria Musculoskeletal: Denies: Joint Pain, Joint Tenderness Skin: Denies: Rash, Wounds Neurological: Denies: Numbness, Tingling, Focal weakness Psychiatric: Denies: Anxiety, Depression Endocrine: Denies: Change in Body Habitus, Heat/ Cold Intolerance Hematologic/ Lymphatic: Denies: Easy Bruising, Easy Bleeding, Hx of blood clot Comment: A 10 point review of systems were negative except as mentioned in the history of present illness and the other review of systems. VTE Information - Inpt Only VTE Present on Admission: No VTE Mechan Device Prophylaxis: None VTE Pharm Prophylaxis ordered?: Yes Patient Problems: Active and Suspected Problems (Last Reviewed 09/06/18 @ 11:52 by uZlly Hayes) Right lower lobe pneumonia (Acute) HAZEL (acute kidney injury) (Acute) - Physical Exam General: Alert, No apparent distress, Well developed, Well nourished HEENT: Atraumatic, Normocephalic, - - No icterus Oral: Moist Mucosa, No Gingival or Mucosal Lesions/ Ulcerations Neck: No Nodes, Thyroid Normal Size and Texture Lungs: Normal air movement, - - Faint bibasilar crackles Cardiovascular: Regular rate, Regular Rhythm, Normal S1, Normal S2, No murmurs Abdomen: Bowel Sounds Present, Soft, Non Tender, Non-Distended, No Hepato- splenomegaly Extremities: No edema, No Calf Tenderness Skin: No rashes, No breakdown Musculoskeletal: No Tenderness to Palpation of Joints or Extremities, No Muscle Wasting Neurological: Deep Tendon Reflexes 2+/4 and Symmetrical, - - No clonus Psych/Mental Status: Normal Affect, Appropriate Vital Signs Temp Pulse Resp BP Pulse Ox 37.2 C 71 20 H 129/61 H 98 10/02/18 15:34 10/02/18 15:34 10/02/18 15:34 10/02/18 15:34 10/02/18 15:34 Oxygen Delivery Method Room Air Weight: 73.936 kg Body Mass Index (BMI) 22.1 Laboratory Tests Past 24 Hrs 10/02/18 10/02/18 10/02/18 12:35 12:35 12:35 WBC 8.6 RBC 4.37 L Hgb 14.4 Hct 41.8 MCV 95.7 H MCH 33.0 H MCHC 34.4 RDW 12.5 RDW Differential 43.8 Plt Count 144 L MPV 10.7 Immature Gran % (Auto) 0.100 Neut % (Auto) 82.8 H Lymph % (Auto) 6.7 L [place] % (Auto) 10.3 H Eos % (Auto) 0.0 Baso % (Auto) 0.1 Absolute Neuts (auto) 7.1 Absolute Lymphs (auto) 0.57 L Total Counted Not Reportable Sodium 136 Potassium 3.8 Chloride 98 Carbon Dioxide 28.0 Anion Gap 10 BUN 35 H Creatinine 1.96 H Estim Creat Clear Calc 30.39 Est GFR (MDRD) Af Amer 42 L Est GFR (MDRD) Non-Af 35 L BUN/Creatinine Ratio 17.9 Glucose 126 H Lactic Acid 1.1 Calcium 8.9 Chest x-ray reviewed and showed chronic bibasilar scarring, unchanged from 2017. Assessment/Plan All Active Problems (Last Reviewed 09/06/18 @ 11:52 by Zully Hayes) Right lower lobe pneumonia (Acute) HAZEL (acute kidney injury) (Acute) Dizziness (Acute) Acute systolic heart failure (Resolved) Atrial fibrillation with RVR (Resolved) Decreased appetite (Resolved) Edema (Resolved) Hyponatremia (Resolved) Orthopnea (Resolved) Severe sepsis (Resolved) UTI (urinary tract infection) (Resolved) Unstable angina (Resolved) 1. Sepsis * Present on arrival * Met 2 of 4 Sirs criteria with fever 38.2 Celsius and tachypnea with respiratory rate of 22 * Presumably due to pneumonia * Follow-up Streptococcus antigen and Legionella antigen * Check sputum culture and blood cultures 2. Possible pneumococcal pneumonia * I am not sure the patient does have actually have pneumonia in the changes on his chest x-ray have been present for the past 2 years * We will treat him empirically with Levaquin which she is already received in the emergency room. We will dose it based on his renal function which be every 48 hours * Check sputum culture as well as urinary antigens for Streptococcus and Legionella * Pulmonary toilet 3. Abnormal chest x-ray * She had pulmonary function tests are consistent with COPD recently * Patient is to follow-up with Dr. Laureano as outpatient * Patient denies any work exposure that he is aware of. Will defer to pulmonology if additional evaluation would be necessary in regards to his chronic changes consideration for Other antiarrhythmic as patient is on amiodarone. But that would need to be done in concert with cardiology 4. Chronic kidney disease stage III * Creatinine up slightly from baseline was around 1.5. We will give patient IV fluids and reevaluate 5. VTE prophylaxis with Lovenox. Patient is moderate risk. 6. Advanced care planning: Discussed with patient about CPR, intubation and PEG tube. Patient states that he would want all those procedures before necessary. Therefore the patient is full CODE STATUS. Code Visit Inpatient E&M: 06423 Init Hosp L3
[2018-10-02 17:15] LABS: Color, Urine Yellow (Yellow); Glucose, Dipstick Normal (Normal); Ketone-Dipstick Negative (Negative); Leukocyte Esterase-Dipstick 500 /ul (Negative); Nitrite-Dipstick Negative (Negative); Occult Blood-Urine 250 /ul (Negative); Protein-Dipstick 100 mg/dl (Negative); Urine Bilirubin Dipstick Negative (Negative); Urine Clarity Sl. Cloudy (Clear); Urine Urobilinogen 1 mg/dl (Normal)
[2018-10-02] MEDS: 0.9% Normal Saline 1,000 ML 150 ML IV (17:17)
[2018-10-02 17:29] LABS: White Blood Cells >100 SEEN /hpf (0-5)
[2018-10-02 17:31] LABS: Red Blood Cells-Urine 0-5 SEEN /hpf (0-5); Squamous Epithelial Cells - UA 5-10 SEEN /hpf (0-5)
[2018-10-02 17:32] LABS: Bacteria 3+ /hpf (None Seen); Transitional Epithelial - Ur 0-5 SEEN /hpf (0-5)
[2018-10-02 17:33] LABS: Mucous, Urine 1+ /hpf (<or=2+)
[2018-10-02] MEDS: Carvedilol 3.125 MG TABLET PO (21:23)
[2018-10-02] MEDS: Atorvastatin Calcium 40 MG Tablet PO (21:23)
[2018-10-02] MEDS: Pramipexole Di-HCl 1 MG Tablet PO (21:23)
[2018-10-03 02:55] VITALS: BP 119/51; PULSE 69; RESP 18; TEMP 36.9; O2SAT 97
[2018-10-03 05:14] LABS: Absolute Lymphocyte Count 0.59 X10^3/ul (0.83-4.51); Absolute Neutrophil Count 5.3 X10^3/uL (2.0-7.7); Basophil# 0.01 X10^3/uL; Basophil% 0.2 % (0-1); Eosinophil# 0.01 X10^3/uL; Eosinophils% 0.2 % (0-5); Hematocrit 36.5 % (40-54); Hemoglobin 12.3 g/dl (13.0-16.5); Lymphocyte # 0.59 X10^3/ul (4.0); Lymphocyte % 9.1 % (19-41); Mean Corp Hgb Conc 33.7 g/gl (32-36); Mean Corpuscular Hgb 32.2 pg (27.0-32.0); Mean Corpuscular Volume 95.5 fL (80-94); Mean Platelet Vol. 11.1 fl (6.2-12.0); Monocyte# 0.62 X10^3/uL; Monocyte% 9.6 % (0-10); Neutrophil # 5.25 X10^3/uL (2.7-7.7); Neutrophil % 80.7 % (47-70); Platelet Count 132 K/mm3 (150-450); RBC Distribution Width CV 12.7 % (11.6-14.6); RBC Distribution Width SD 44.2 fl (35.1-43.9); Red Blood Count 3.82 M/mm3 (4.6-6.2); White Blood Count 6.5 K/mm3 (4.4-11.0)
[2018-10-03 05:20] LABS: Differential Indicated SCAN CRITERIA MET; POSITIVE COUNT NO; POSITIVE DIFFERENTIAL YES; POSITIVE MORPHOLOGY NO
[2018-10-03 05:26] LABS: Anion Gap 8 (5-15); BUN 32 mg/dL (7-18); BUN/Creat Ratio 22.2 RATIO (10-20); Calcium,Total 8.5 mg/dL (8.5-10.1); Chloride 106 mmol/L (98-107); Creatinine, Serum 1.44 mg/dL (0.70-1.30); EST Glomerular Filtration Rate 50 mL/min (>60); Est Glom Filt Rate - Afr Amer 60 mL/min (>60); Estimated Creatinine Clearance 41.36 ml/min; Glucose 113 mg/dL (74-106); Potassium 3.5 mmol/L (3.5-5.1); Sodium Level 140 mmol/L (136-145)
[2018-10-03 07:41] VITALS: BP 135/58; PULSE 74; RESP 20; TEMP 36.3; O2SAT 96
[2018-10-03 07:44] VITALS: PULSE 90; O2SAT 96
[2018-10-03] MEDS: Aspirin 81 MG TAB.CHEW PO (07:53)
[2018-10-03] MEDS: Amiodarone 200 MG Tablet 100 MG PO (09:22)
[2018-10-03] MEDS: Enoxaparin 40 MG/0.4 ML Syringe SC (09:23)
[2018-10-03] MEDS: Furosemide 40 MG Tablet PO (09:23)
[2018-10-03] MEDS: Carvedilol 3.125 MG TABLET PO (09:23)
[2018-10-03 11:12] VITALS: O2SAT 92
[2018-10-03 14:36] VITALS: BP 152/67; PULSE 74; RESP 18; TEMP 36.5; O2SAT 95
[2018-10-03 14:43] VITALS: O2SAT 92; O2SAT 96
--- NOTE | 2018-10-03 15:17 | PCM.DC ---
- Discharge Diagnoses Current Active Problems: Current Active and Chronic Problems (Last Reviewed 10/02/18 @ 15:48 by Shmuel Pardo DO) Right lower lobe pneumonia (Acute) HAZEL (acute kidney injury) (Acute) You will use the following diet at home:: No restrictions Your food should be the consistency of: Regular Your liquids should be the consistency of: Regular/Thin Discharge Activity: Return to Normal Activity Weight Bearing Status: Full weight bearing Allergies/Adverse Reactions: Allergies Sulfa (Sulfonamide Antibiotics) Allergy (Verified 09/06/18 11:52) Other SKIN SLOUGHING Medications to take at Discharge Furosemide [Lasix] 40 mg PO DAILY 01/06/17 Aspirin [Aspirin, Baby] 81 mg PO DAILY 01/24/17 Acetaminophen [Tylenol] 1,000 mg PO Q8H PRN PRN tab 02/02/17 Pramipexole Di-HCl [Mirapex] 1 mg PO QHS #30 02/02/17 atorvastatin 40 mg tablet 40 mg PO QDAY 09/21/17 amiodarone 200 mg tablet 100 mg PO DAILY #1 tab 05/25/18 carvedilol 3.125 mg tablet 3.125 mg PO BID #60 tab 09/28/18 levoFLOXacin tablet [Levaquin tablet] 500 mg PO QODAY #5 tab 10/03/18 The following prescriptions were given: levoFLOXacin tablet [Levaquin tablet] 500 mg PO QODAY #5 tab Transmission Status: Pending to [facility] #30 Primary Care Physician: Eric Johns III, MD [Primary Care Provider] - Please follow up with your Primary Care Physician in: in one week Test Results: Test results from this visit will be discussed in further detail at your follow-up appointment, if applicable.
--- NOTE | 2018-10-03 19:34 | DS.PCM_ITS ---
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) CABG x 3 PIÑA-LAD, SVG-OM1, SVG-OM2, Left Atrial esclusion with 45-mm Atriclip 01/16/17 @ [facility] Secondary pulmonary arterial hypertension (Chronic) Atherosclerosis of coronary artery of [place] heart without angina pectoris (Chronic) CABG x 3 PIÑA-LAD, SVG-OM1, SVG-OM2, Left Atrial esclusion with 45-mm At riclip 01/16/17 Chronic systolic (congestive) heart failure (Chronic) Paroxysmal atrial fibrillation (Chronic) Ischemic cardiomyopathy (Chronic) Insomnia (Chronic) Depression (Chronic) Restless legs syndrome (Chronic) Hyperlipidemia (Chronic) BPH (benign prostatic hyperplasia) (Chronic) Hypertension (Chronic) Hypercholesterolemia (Chronic) Hospital Course and Treatment Operations: None Procedures: None Summary of Care Provided: The patient is a 82 year old M was seen in the emergency room at [facility] with chief complaint of fever and malaise over several days. He denied coughing, shortness of breath, or chest pain. Work-up in the emergency room showed a normal white blood cell count, chemistry panel was remarkable for creatinine of 1.96 and a BUN of 35. Glucose was 126. Patient's temperature was 100.7. Chest x-ray showed a right lower lobe infiltrate suggesting pneumonia-in reviewing the patient's old chest x-rays however, I feel that this area of infiltrate is chronic in nature and may indicate a fibrotic area. Patient was placed in observation status on MedSurg 3 for sepsis- initially felt to be secondary to pneumonia, however, on further reflection, it was noted that the patient's urine had +3 bacteria and white blood cells, I felt that the patient had acute cystitis. Patient was treated with Levaquin and IV fluids. On 10/03/2018, patient was seen and examined: On examination he appeared in good health and spirits. Vital signs as documented. Skin warm and dry and without overt rashes. Neck without JVD. Lungs-decreased breath sounds were noted over the right lower lung, inspiratory rales were noted over the left lower lung, patient appeared in no respiratory distress. Heart exam notable for regular rhythm, normal sounds and absence of murmurs, rubs or gallops. Abdomen unremarkable and without evidence of organomegaly, masses, or abdominal aortic enlargement. Extremities nonedematous. Neuro: Cranial nerves II through XII are grossly intact, no focal motor deficits were noted, sensation to light touch and pinprick intact. Psych: Patient is alert and oriented x3, he does not appear anxious or depressed On 10/03/2018, patient was discharged home in stable condition. - Physical Exam Vital Signs Temp Pulse Resp BP Pulse Ox 97.7 F L 74 18 152/67 H 96 10/03/18 14:36 10/03/18 14:36 10/03/18 14:36 10/03/18 14:36 10/03/18 14:43 Oxygen Delivery Method Room Air Weight: 73.936 kg Body Mass Index (BMI) 22.1 Intake and Output for Last 24 Hours 10/01/18 10/02/18 10/03/18 23:59 23:59 23:59 Intake Total 1455 / 1455 Output Total 575 / 575 Balance 880 / 880 Microbiology Past 72 Hours 10/02/18 16:40 Streptococcus pneumoniae Antigen (M - Final Urine, Clean Catch 10/02/18 16:40 Legionella Antigen - Final Urine, Clean Catch Laboratory Tests Past 24 Hrs 10/03/18 10/03/18 04:25 04:25 WBC 6.5 RBC 3.82 L Hgb 12.3 L Hct 36.5 L MCV 95.5 H MCH 32.2 H MCHC 33.7 RDW 12.7 RDW Differential 44.2 H Plt Count 132 L MPV 11.1 Immature Gran % (Auto) 0.200 Neut % (Auto) 80.7 H Lymph % (Auto) 9.1 L [place] % (Auto) 9.6 Eos % (Auto) 0.2 Baso % (Auto) 0.2 Absolute Neuts (auto) 5.3 Absolute Lymphs (auto) 0.59 L Total Counted Not Reportable Differential Comment Sodium 140 Potassium 3.5 Chloride 106 Carbon Dioxide 26.0 Anion Gap 8 BUN 32 H Creatinine 1.44 H Estim Creat Clear Calc 41.36 Est GFR (MDRD) Af Amer 60 Est GFR (MDRD) Non-Af 50 L BUN/Creatinine Ratio 22.2 H Glucose 113 H Calcium 8.5 Discharge Activity: Return to Normal Activity Weight Bearing Status: Full weight bearing Home Medications: Medications to take at Discharge Furosemide [Lasix] 40 mg PO DAILY 01/06/17 Aspirin [Aspirin, Baby] 81 mg PO DAILY 01/24/17 Acetaminophen [Tylenol] 1,000 mg PO Q8H PRN PRN tab 02/02/17 Pramipexole Di-HCl [Mirapex] 1 mg PO QHS #30 02/02/17 atorvastatin 40 mg tablet 40 mg PO QDAY 09/21/17 amiodarone 200 mg tablet 100 mg PO DAILY #1 tab 05/25/18 carvedilol 3.125 mg tablet 3.125 mg PO BID #60 tab 09/28/18 levoFLOXacin tablet [Levaquin tablet] 500 mg PO QODAY #5 tab 10/03/18 Following Prescrptions Were Given to Patient: levoFLOXacin tablet [Levaquin tablet] 500 mg PO QODAY #5 tab Transmission Status: Received by [facility] #30 Primary Care Physician: Eric Johns III, MD [Primary Care Provider] - Please follow up with your Primary Care Physician in: in one week Disposition: Home Minutes spent on discharge:: 32 Patient Condition:: Stable Medical Necessity - Tobacco Use Smoking Status: Former smoker Meaningful Use Info Meaningful Use Diagnoses (Choose all that apply): None applicable Code Visit OBSV E&M: 79969 Observation care discharge
== END 2018-10-03 15:45 | disposition home or self-care (01) ==
LOC: ED 14:07 → MS3 14:41
PROVIDERS: Emergency Medicine; Emergency Provider Physician Assistant Medical; Family Provider Family Medicine; PCP Family Medicine; Visit Provider Internal Medicine
DX: A41.9 Sepsis, unspecified organism (principal); N30.00 Acute cystitis without hematuria; I25.10 Atherosclerotic heart disease of native coronary artery without angina pectoris; I13.0 Hypertensive heart and chronic kidney disease with heart failure and stage 1 through stage 4 chronic kidney disease, or unspecified chronic kidney disease; N18.3 Chronic kidney disease, stage 3 (moderate); J84.10 Pulmonary fibrosis, unspecified; I48.0 Paroxysmal atrial fibrillation; F32.9 Major depressive disorder, single episode, unspecified; N40.0 Benign prostatic hyperplasia without lower urinary tract symptoms; E78.5 Hyperlipidemia, unspecified; G25.81 Restless legs syndrome; I27.21 Secondary pulmonary arterial hypertension; I50.22 Chronic systolic (congestive) heart failure; Z95.1 Presence of aortocoronary bypass graft; Z87.891 Personal history of nicotine dependence; Z79.899 Other long term (current) drug therapy
CPT/HCPCS: 36415; 71046; 80048; 81001; 83605; 85025; 87040; 87086; 87449; 93005; 94667; 94668; 96361; 96365; 96366; 96372; 97802; 99218; 99251; 99285; J7030; J7040; A4216; G0378; G0463

== ENCOUNTER → 2018-11-09 07:18 | Outpatient (CLI) | payer MEDICARE, OTHER, SELFPAY ==
[2018-11-04 09:16] VITALS: BMI 21.9
[2018-11-09 08:07] LABS: AST(SGOT) 18 U/L (15-37); Alanine Aminotransfer ALT/SGPT 23 U/L (16-61); Albumin, Serum 3.5 g/dL (3.2-5.0); Alkaline Phosphatase 94 U/L (45-117); Bilirubin, Direct 0.21 mg/dL (0.00-0.30); Cholesterol 144 mg/dL (200); Globulin 3.2 g/dL (2.2-4.2); High Density Lipoprotein 48 mg/dL; Protein, Total 6.7 g/dL (6.4-8.2); T4 Total, Thyroxin 12.8 ug/dL (4.5-12.1); Thyroid Stim Hormone (TSH) 2.95 uIU/mL (0.358-3.74); Triglycerides 106 mg/dL; Very Low Density Lipoprotein 21 mg/dL (5-40)
== END ==
PROVIDERS: Family Provider Family Medicine; PCP Family Medicine; Referring Provider Internal Medicine Cardiovascular Disease; Visit Provider Internal Medicine Cardiovascular Disease
DX: E78.5 Hyperlipidemia, unspecified (principal); Z79.899 Other long term (current) drug therapy
CPT/HCPCS: 36415; 80061; 80076; 84436; 84443

== ENCOUNTER 2019-04-27 11:51 | Emergency (ER) | payer MEDICARE, OTHER, SELFPAY ==
[2018-11-04 09:16] VITALS: BMI 21.9
[2019-04-27 11:52] VITALS: BP 184/59; PULSE 81; RESP 16; TEMP 38.2; O2SAT 96; BMI 25.1
[2019-04-27 13:02] VITALS: BP 184/59; PULSE 81; RESP 16; TEMP 38.2; O2SAT 96
--- NOTE | 2019-04-27 13:20 | EKG12_ITS ---
Test Reason : FEVER Blood Pressure : / mmHG Vent. Rate : 079 BPM Atrial Rate : 079 BPM P-R Int : 182 ms QRS Dur : 132 ms QT Int : 422 ms P-R-T Axes : 073 -35 060 degrees QTc Int : 483 ms Normal sinus rhythm Left axis deviation Non-specific intra-ventricular conduction block Cannot rule out Anterior infarct , age undetermined Abnormal ECG Confirmed by JESSICA KESSLER, LOGAN ([id number]), editor news RACHAEL MARCOS ([id number]) on 04/29/2019 2:31:12 PM Referred By: Eric Johns Confirmed By:NOLAN LOPEZ MD
--- NOTE | 2019-04-27 13:20 | CT_ITS ---
STUDY: CT BRAIN WITHOUT CONTRAST REASON FOR EXAM: Male, 83 years old. FEVER, CHILLS, WEAKNESS, AMS. RADIATION DOSAGE (If Supplied By Facility): CTDIvol = ( 44.99 ) mGy, DLP = ( 796.11 ) mGycm TECHNIQUE: Transaxial CT imaging of the brain was performed without administration of intravenous contrast material. Individualized dose optimization techniques were used for this CT. COMPARISON: No relevant priors. FINDINGS: Normal soft tissue structures. Normal calvarium. There is some atherosclerotic calcific plaquing of the cavernous segments of the bilateral internal carotid arteries. There is borderline to mild cerebral atrophy with widening of the extra-axial spaces and ventricular dilatation. Normal white matter tracts of the cerebral hemispheres. Normal basal ganglia and thalami. Normal brainstem. There is borderline to mild cerebellar atrophy. There is no intracranial hemorrhage. There are no findings of an acute ischemic infarction. Normal visualized paranasal sinuses. CT/Brain/Head without Contrast IMPRESSION: Chronic involutional changes of the brain. No acute intracranial pathology. Electronically Signed: Jelani Juarez MD at 13:59 EST , Service support ,
--- NOTE | 2019-04-27 13:40 | RAD_ITS ---
STUDY: X-RAY CHEST REASON FOR EXAM: Male, 83 years old. WEAKNESS AND FEVER TECHNIQUE: Upright AP and lateral views of the chest on 3 images. COMPARISON: PA and lateral chest x-ray October 02, 2018. FINDINGS: The right lung base infiltrate on prior study is improved, but there is residual or recurrent subtle density with air bronchograms. Vaguely nodular 1 cm density projecting at the inferolateral right lung base on the frontal images consistent with an overlapping nipple shadow artifact. Chronic blunting of the lateral left costophrenic sulcus is unchanged. Normal size heart. Sternal cerclage wires and vascular clips are present from a prior sternotomy and coronary artery bypass graft procedure (CABG). Left atrial appendage clip also again noted. Normal mediastinum and [place]. Normal visualized pulmonary arteries. There is atherosclerotic calcification of the aortic arch with stable mild tortuosity of the descending thoracic segment. There are stable multilevel degenerative changes of the visualized thoracic spine. Normal visualized ribs, clavicles, and shoulders. There is no demonstrated abnormality of the visualized soft tissue structures of the upper abdomen. RAD/Chest PA and Lateral IMPRESSION: 1. Overall, aeration in the right base is improved, but there is subtle, hazy residual or recurrent infiltrate. 2. Stable chronic blunting of the lateral left costophrenic sulcus. 3. Prior median sternotomy and CABG as well as left atrial clipping. Heart size and pulmonary vascular pattern are normal. Electronically Signed: Jelani Juarez MD at 14:12 EST , Service support ,
[2019-04-27 13:49] LABS: Absolute Lymphocyte Count 0.55 X10^3/uL (0.83-4.51); Absolute Neutrophil Count 10.2 X10^3/uL (2.0-7.7); Basophil# 0.02 X10^3/uL; Basophil% 0.2 % (0-1); Eosinophil# 0.02 X10^3/uL; Eosinophils% 0.2 % (0-5); Hematocrit 39.8 % (40-54); Hemoglobin 12.9 g/dL (13.0-16.5); Lymphocyte # 0.55 X10^3/ul (4.0); Lymphocyte % 4.7 % (19-41); Mean Corp Hgb Conc 32.4 g/dL (32-36); Mean Corpuscular Hgb 31.2 pg (27.0-32.0); Mean Corpuscular Volume 96.4 fL (80-94); Monocyte# 0.85 X10^3/uL; Monocyte% 7.2 % (0-10); NRBC Flagged by Analyzer 0 % (0-5); Neutrophil # 10.21 X10^3/uL (2.7-7.7); Neutrophil % 86.6 % (47-70); POSITIVE DIFFERENTIAL YES; POSITIVE MORPHOLOGY YES; Platelet Count 148 K/mm3 (150-450); RBC Distribution Width SD 42.8 fl (35.1-43.9); Red Blood Count 4.13 M/mm3 (4.6-6.2); White Blood Count 11.8 K/mm3 (4.4-11.0)
[2019-04-27 13:52] VITALS: BP 116/54; PULSE 79; RESP 16; TEMP 39.3; O2SAT 94
[2019-04-27 13:54] LABS: Differential Indicated SCAN CRITERIA MET
--- NOTE | 2019-04-27 13:57 | ED.VIS.GEN ---
History of Present Illness Chief Complaint: Fever Informant: Patient, Significant Other Onset: Days - 5-6 Context: Gradual Onset Timing: Continuous Quality: weakness Location: all over Current Severity: Moderate Maximum Severity: Moderate Worsened by: n/a Relieved by: n/a Associated Symptoms: none Narrative: Feeling malaised and weak all over with no other symptoms. states has had this happen with urinary tract infection in the past. He does not have dementia but is a little confused today. Has been able to stand and walk and get around. Lives with his . - Past Medical History (1) BPH (benign prostatic hyperplasia) Status: Chronic (2) Chronic systolic (congestive) heart failure Status: Chronic (3) Depression Status: Chronic (4) Hypercholesterolemia Status: Chronic (5) Hyperlipidemia Status: Chronic (6) Hypertension Status: Chronic (7) Insomnia Status: Chronic (8) Ischemic cardiomyopathy Status: Chronic (9) Non-rheumatic tricuspid valve insufficiency Status: Chronic (10) Paroxysmal atrial fibrillation Status: Chronic (11) Restless legs syndrome Status: Chronic (12) Secondary pulmonary arterial hypertension Status: Chronic Past Medical History - Allergies and Home Meds Allergies/Adverse Reactions: Allergies Sulfa (Sulfonamide Antibiotics) Allergy (Verified 04/27/19 11:53) Other SKIN SLOUGHING Primary Care Physician: Eric Johns III, MD [Primary Care Provider] - Surgical History: coronary bypass surgery - x 3. Lives: Spouse/ Significant Other Smoking Status: Former smoker - Family History Maternal Family History: Reports: No pertinent history Paternal Family History: Reports: - - Emphysema Sibling Family History: Reports: Heart Disease - 2 brothers with CAD Review of Systems General: Reports: Malaise. Denies: Chills, Fever, Sweats Eyes: Denies: Visual changes - bilaterally, Diplopia ENT: Denies: Rhinorrhea, Sore throat Cardiovascular: Denies: Chest pain, Palpitations Respiratory: Denies: Dyspnea, Cough, Dyspnea on exertion Gastrointestinal: Denies: Abdominal pain, Nausea, Vomiting, Diarrhea, Melena, Hematochezia Genitourinary: Denies: Dysuria, Hematuria, Frequency Musculoskeletal: Reports: Swelling - Mild both lower extremities, chronic, stable unchanged. Denies: Back pain, Extremity Pain Skin: Denies: Rash, Wounds Neurological: Denies: Headache, Weakness, Numbness Physical Exam Vital Signs/Narrative: Vital Signs Temp Pulse Resp BP Pulse Ox 04/27/19 13:52 102.7 F H 79 16 116/54 L 94 04/27/19 13:02 100.8 F H 81 16 184/59 H 96 04/27/19 11:52 100.8 F H 81 16 184/59 H 96 Inital Vital Signs reviewed: Yes General: Well nourished, Well developed, No Acute Distress Head: Normocephalic, Atraumatic Eyes: Perrl, EOMI ENT: Moist mucous membranes, No rhinorrhea Neck: Supple, Nontender Cardiovascular: Regular rate, Regular rhythm, No murmurs Respiratory: No distress, CTA bilaterally, Chest nontender Abdomen: Soft, Nontender, Nondistended, Normal bowel sounds Back: Nontender, Normal Inspection Extremities: Nontender, Edema - Trace bilateral lower extremity, symmetric, to both mid-tibias. Negative for: Calf Tenderness Skin: Normal color, No rash, No Trauma Neurological: Alert, Cranial nerves II-XII grossly intact, Normal Strength, Normal Sensation, Disoriented - To the month only. Correct year, person, age. Psychological: Normal affect, Normal Mood Diagnostic/Tx/Re-eval Impressions Brain CT 04/27/19 13:20 IMPRESSION: Chronic involutional changes of the brain. No acute intracranial pathology. Electronically Signed: Jelani Juarez MD at 13:59 EST , Service support , Chest X-Ray 04/27/19 13:40 IMPRESSION: 1. Overall, aeration in the right base is improved, but there is subtle, hazy residual or recurrent infiltrate. 2. Stable chronic blunting of the lateral left costophrenic sulcus. 3. Prior median sternotomy and CABG as well as left atrial clipping. Heart size and pulmonary vascular pattern are normal. Electronically Signed: Jelani Juarez MD at 14:12 EST , Service support , 04/27/19 13:20 Brain/Head without Contrast [CT] Stat 04/27/19 13:40 Chest PA and Lateral [RAD] Stat Laboratory Results 04/27/19 04/27/19 04/27/19 13:05 13:30 13:30 WBC 11.8 H RBC 4.13 L Hgb 12.9 L Hct 39.8 L MCV 96.4 H MCH 31.2 MCHC 32.4 RDW Std Deviation 42.8 RDW Coeff of Elena 12.0 Plt Count 148 L MPV 11.0 Immature Gran % (Auto) 1.100 H Neut % (Auto) 86.6 H Lymph % (Auto) 4.7 L [place] % (Auto) 7.2 Eos % (Auto) 0.2 Baso % (Auto) 0.2 Absolute Neuts (auto) 10.2 H Absolute Lymphs (auto) 0.55 L Nucleated RBC % 0 Differential Comment Platelet Estimate ADEQUATE RBC Morphology NORM C+C Sodium 134 L Potassium 3.4 L Chloride 101 Carbon Dioxide 28.0 Anion Gap 5 BUN 39 H Creatinine 2.34 H Estim Creat Clear Calc 24.70 Est GFR (MDRD) Af Amer 34 L Est GFR (MDRD) Non-Af 28 L BUN/Creatinine Ratio 16.7 Glucose 125 H Calcium 8.5 Troponin I < 0.015 Urine Color Yellow Urine Clarity Sl. Cloudy Urine pH 6.0 Ur Specific [place] 1.015 Urine Protein 100 H Urine Glucose (UA) Normal Urine Ketones Negative Urine Occult Blood 150 H Urine Nitrite Positive H Urine Bilirubin Negative Urine Urobilinogen 1 H Ur Leukocyte Esterase 500 H Urine RBC 10-25 SEEN Urine WBC 25-50 SEEN Ur Squamous Epith Cells 0-5 SEEN Urine Bacteria 2+ Urine Mucus 0 SEEN - Rhythm Strip Rhythm Strip: Sinus Rhythm Rate: 80 Ectopy: None - EKG Initial EKG Interpretation: Sinus Rhythm, No Acute Injury Pattern, LBBB Prior: Unchanged - Medical Decision Making Work-up confirms urinary tract infection. He also has acute kidney injury that is relatively mild, in talking with the and patient he has not been drinking fluids very well in the last several days since he has not been feeling great. This is probably the reason. We will give him some IV fluids here in addition to Rocephin empirically, and sent cultures. He really wants to go home. I discussed risk and benefits, is comfortable taking him home at this time. I do not think that is unreasonable. We discussed drinking more fluids. We will prescribe him antibiotics and he will follow-up as an outpatient. Chest x-ray did mention the possibility of an early infiltrate, I suspect this is atelectasis from malaise. Since there is no lobar pneumonia I do not suspect this is the cause of his symptoms. ED Disposition - Plan for ED Patient: Disposition: Home or Assisted Living Diagnosis: Urinary tract infection, HAZEL (acute kidney injury) Instructions: Understanding Urinary Tract Infections (UTIs) Prescriptions: Cephalexin [Keflex] 500 mg PO 4X/DAY #40 cap Transmission Status: Pending to [facility] Referrals: Eric Johns III, MD [Primary Care Provider] - 3-5 Days
[2019-04-27 14:02] LABS: Anion Gap 5 (5-15); BUN 39 mg/dL (7-18); BUN/Creat Ratio 16.7 RATIO (10-20); Calcium,Total 8.5 mg/dL (8.5-10.1); Chloride 101 mmol/L (98-107); Creatinine, Serum 2.34 mg/dL (0.70-1.30); EST Glomerular Filtration Rate 28 mL/min (>60); Est Glom Filt Rate - Afr Amer 34 mL/min (>60); Glucose 125 mg/dL (74-106); Potassium 3.4 mmol/L (3.5-5.1); Sodium Level 134 mmol/L (136-145)
[2019-04-27 14:31] LABS: Platelet Estimate ADEQUATE (ADEQ); Red Cell Morphology NORM C+C NORMAL (NORM C&C)
[2019-04-27 14:38] LABS: Mucous, Urine 0 SEEN /hpf (<or=2+)
[2019-04-27 14:41] LABS: Color, Urine Yellow (Yellow); Glucose, Dipstick Normal (Normal); Ketone-Dipstick Negative (Negative); Leukocyte Esterase-Dipstick 500 /ul (Negative); Nitrite-Dipstick Positive (Negative); Occult Blood-Urine 150 /ul (Negative); Protein-Dipstick 100 mg/dl (Negative); Specific Gravity, Urine 1.015 (1.002-1.030); Urine Bilirubin Dipstick Negative (Negative); Urine Clarity Sl. Cloudy (Clear); Urine Urobilinogen 1 mg/dl (Normal)
[2019-04-27] MEDS: 0.9% Normal Saline 1,000 ML 150 ML IV (14:51)
[2019-04-27 14:56] LABS: Bacteria 2+ /hpf (None Seen); Red Blood Cells-Urine 10-25 SEEN /hpf (0-5); Squamous Epithelial Cells - UA 0-5 SEEN /hpf (0-5); White Blood Cells 25-50 SEEN /hpf (0-5)
[2019-04-27 15:06] VITALS: BP 125/48; PULSE 73; RESP 18; TEMP 37.6; O2SAT 95
[2019-04-27 16:00] VITALS: BP 126/71; PULSE 115; RESP 86; TEMP 39.6; O2SAT 93
[2019-04-27] MEDS: Ceftriaxone 1 GM/50 ML BAG IV (16:06)
[2019-04-27] MEDS: Acetaminophen 500 MG Tablet 1000 MG PO (16:08)
[2019-04-27 17:00] VITALS: BP 104/47; PULSE 81; RESP 20; TEMP 39.1; O2SAT 92
== END 2019-04-27 17:29 | disposition home or self-care (01) ==
PROVIDERS: Emergency Provider Emergency Medicine; PCP Family Medicine; Referring Provider Family Medicine
DX: N17.9 Acute kidney failure, unspecified (principal); N39.0 Urinary tract infection, site not specified; I11.0 Hypertensive heart disease with heart failure; I50.22 Chronic systolic (congestive) heart failure; I25.5 Ischemic cardiomyopathy; I36.1 Nonrheumatic tricuspid (valve) insufficiency; I48.0 Paroxysmal atrial fibrillation; I27.21 Secondary pulmonary arterial hypertension; E78.5 Hyperlipidemia, unspecified; G47.00 Insomnia, unspecified; G25.81 Restless legs syndrome; N40.0 Benign prostatic hyperplasia without lower urinary tract symptoms; Z79.82 Long term (current) use of aspirin; Z79.899 Other long term (current) drug therapy; Z88.2 Allergy status to sulfonamides; Z87.891 Personal history of nicotine dependence; Z87.440 Personal history of urinary (tract) infections; Z95.1 Presence of aortocoronary bypass graft
CPT/HCPCS: 70450; 71046; 80048; 81001; 84484; 85025; 87077; 87086; 87088; 87186; 93005; 96361; 96365; 99285; J7030; J7050; A4216

== ENCOUNTER → 2019-10-24 13:27 | Outpatient (CLI) | payer MEDICARE, OTHER, SELFPAY ==
[2019-10-13 14:08] VITALS: BMI 21.4
--- NOTE | 2019-10-24 13:27 | ECHOD_ITS ---
Reason For Study: VALVE REPLACEMENT EVAL Procedure This was a 2D Doppler, Color Flow transthoracic echocardiogram. The study was technically difficult. Due to body habitus. Exam performed in department. Left Ventricle Normal size and thickness. The estimated ejection fraction is 65 %. Stage 2 diastolic dysfunction. No regional wall motion abnormalities noted. Right Ventricle Mildly dilated right ventricle. Normal systolic function. Atria Normal left atrium. Normal right atrium. Normal atrial septum. Mitral Valve The mitral valve is structurally normal. No prolapse or stenosis seen. Trivial eccentric mitral valve insufficiency. Tricuspid Valve Normal tricuspid valve. Trivial tricuspid valve insufficiency. Right ventricular systolic pressure estimated to be 28 mmHg. Aortic Valve Trisinus/trileaflet aortic valve. Moderate focal aortic valve thickening. Mild aortic stenosis. Trivial aortic valve insufficiency. Pulmonic Valve Normal pulmonic valve. Great Vessels Normal aortic root. Normal arch. Normal inferior vena cava. Inferior vena cava collapse with sniff. Pericardium/Pleural No pericardial effusion. MMode/2D Measurements & Calculations LVIDd: 4.6 cm IVSd: 1.2 cm Ao root diam: 3.1 cm LVIDs: 3.2 cm LVPWd: 1.2 cm LA dimension: 3.6 cm RVDd: 3.8 cm FS: 29.9 % LAV(MOD-bp): 32.2 ml LA A4 area: 12.0 cm2 LA dimension(2D): 2.9 cm LAV(MOD-bp) Indexed: 16.2 ml/m2 LAV(MOD-sp2): 31.0 ml LAV(MOD-sp4): 30.8 ml RA A4 area: 15.5 cm2 Time Measurements MV dec time: 0.15 sec Doppler Measurements & Calculations MV E max jeb: 121.7 cm/sec Lat Peak E' Jeb: 8.2 cm/sec Med Peak E' Jeb: 5.4 cm/sec MV A max jeb: 73.8 cm/sec E/E' lat: 14.8 E/E' med: 22.4 MV E/A: 1.6 Ao V2 max: 105.7 cm/sec AI max jeb: 321.0 cm/sec LV V1 max: 73.6 cm/sec Ao max P.5 mmHg AI max P.3 mmHg LV V1 max P.2 mmHg Ao V2 mean: 72.5 cm/sec AI dec slope: 114.4 cm/sec2 LV V1 mean P.1 mmHg Ao mean P.3 mmHg AI P1/2t: 821.6 msec LV V1 mean: 49.8 cm/sec Ao V2 VTI: 23.0 cm LV V1 VTI: 16.4 cm PA V2 max: 83.2 cm/sec Interpretation Summary The estimated ejection fraction is 65 %. Stage 2 diastolic dysfunction. Trivial eccentric mitral valve insufficiency. Trivial tricuspid valve insufficiency. Right ventricular systolic pressure estimated to be 28 mmHg. Mild aortic stenosis. Moderate focal aortic valve thickening of noncoronary cusp with mild restriction of movement of noncoronary cusp. Right coronary cusp and left coronary cusps appear to open normally. Trivial aortic valve insufficiency. Compared to echo report dated 06/03/2018, LV function and aortic stenosis are about the same, RVSP has improved from 38 to 28 mmHg. Ordering Physician: Grady Schmidt Referring Physician: rEic Johns Performed By: Miri Hercules RDCS, RVT
== END ==
PROVIDERS: PCP Family Medicine; Referring Provider Internal Medicine Cardiovascular Disease; Visit Provider Internal Medicine Cardiovascular Disease
DX: I36.8 Other nonrheumatic tricuspid valve disorders (principal); I42.8 Other cardiomyopathies; I25.5 Ischemic cardiomyopathy; Z79.899 Other long term (current) drug therapy
CPT/HCPCS: 93306

== ENCOUNTER → 2021-12-19 | Outpatient (CLI) | payer MEDICARE, OTHER, SELFPAY ==
[2021-12-19 10:14] LABS: Anion Gap 7 (5-15); BUN 25 mg/dL (7-18); BUN/Creat Ratio 18.2 RATIO (10-20); Calcium,Total 8.7 mg/dL (8.5-10.1); Chloride 108 mmol/L (98-107); Creatinine, Serum 1.37 mg/dL (0.70-1.30); EST Glomerular Filtration Rate 52 mL/min (>60); Est Glom Filt Rate - Afr Amer 63 mL/min (>60); Glucose 92 mg/dL (74-106); Potassium 4.3 mmol/L (3.5-5.1); Sodium Level 142 mmol/L (136-145)
== END | disposition home or self-care (01) ==
LOC: LAB 08:42
PROVIDERS: PCP Family Medicine; Referring Provider Nurse Practitioner Gerontology; Visit Provider Nurse Practitioner Gerontology
DX: R60.9 Edema, unspecified (principal)
CPT/HCPCS: 36415; 80048

== ENCOUNTER 2024-06-08 07:06 | Emergency (ER) | payer MEDICARE, OTHER, SELFPAY ==
[2024-06-08 07:07] VITALS: BP 144/85; PULSE 98; RESP 16; TEMP 36.2; O2SAT 97; BMI 22.5
--- NOTE | 2024-06-08 07:17 | EX.ED.DYSGE1 ---
HPI History of Present Illness Chief Complaint: Nosebleed Narrative Narrative: Patient is a 88-year-old male past medical history hypertension, paroxysmal atrial fibrillation on Xarelto, depression, BPH, hyperlipidemia who presented to the emergency department with a chief complaint of nosebleed. Patient states that he has had nosebleeds on and off for the last 3 weeks and states that he could not get his nosebleed to stop this morning prompting him to come here for the valuation management. [facility] PFS Medical History Essential hypertension On amiodarone therapy Dizziness Atherosclerosis of coronary artery of [place] heart without angina pectoris Chronic systolic (congestive) heart failure Paroxysmal atrial fibrillation Ischemic cardiomyopathy Insomnia Depression Restless legs syndrome Hyperlipidemia BPH (benign prostatic hyperplasia) Atrial fibrillation with RVR Home Medications ?Medication ?Instructions ?Recorded ?Last Taken ?Type aspirin 81 mg chewable tablet 81 mg PO DAILY health maintenance 01/24/17 02/05/17 History pramipexole 1 mg tablet 1 mg PO QHS RLS ##30 02/02/17 02/04/17 Rx atorvastatin 40 mg tablet 40 mg PO QDAY 09/21/17 Unknown History carvedilol 6.25 mg tablet 6.25 mg PO BID #180 tabs 03/24/22 Unknown Rx tamsulosin 0.4 mg capsule 0.4 mg PO QHS 11/04/22 Unknown History rivaroxaban 15 mg tablet 15 mg PO DAILY #90 tabs 07/20/23 Unknown Rx losartan 50 mg tablet 50 mg PO DAILY #90 tabs 11/05/23 Unknown Rx Allergy/AdvReac Type Severity Reaction Status Date / Time Sulfa (Sulfonamide Allergy Other Verified 06/08/24 07:08 Antibiotics) apixaban (From Eliquis) AdvReac Intermediate Dizziness Verified 06/08/24 07:08 and hands broke out Surgical History H/O coronary artery bypass surgery (01/16/17) Social History Smoking Status: Former smoker how long ago did patient quit smokin years ago alcohol intake: current alcohol intake frequency: 0-2 drinks per day Alcohol type: wine substance use type: does not use caffeine: Yes Type: coffee Number of servings: 2 ROS ROS ED ROS Narrative Constitutional: Denies headache, lightness, dizziness, fevers, chills Eyes, ears, nose, throat: Complains of nosebleed as noted above Cardiovascular: Denies chest pain Respiratory: Denies shortness of breath Neurological: Denies numbness, weakness, tingling EXAM Physical Exam Narrative Exam Narrative: General: Patient lying in bed rest comfortably did not appear to be in acute distress Head: Atraumatic, normocephalic Eyes, ears, nose, throat: The nasal clip was removed and patient has no active bleeding at this point in time, PERRL bilaterally, EOMI bilaterally, no conjunctival injection noted Neck: Soft, supple, trach midline Cardiovascular: Regular rate and rhythm no murmurs gallops rubs noted Respiratory: Clear to auscultation bilaterally Extremities: +5/5 strength noted in the bilateral upper and lower extremities Neurological: Patient follow commands that he was at [facility] year is 2024 Skin: Warm, dry, intact no rashes or lesions noted Const Vital Signs: 06/08/24 07:07 Temperature 97.2 F L Temperature Source Temporal Pulse Rate 98 Respiratory Rate 16 Blood Pressure 144/85 H Blood Pressure Mean 104 Pulse Ox 97 Oxygen Delivery Method Room Air MDM MDM MDM Narrative Medical decision making narrative: Patient is a 88-year-old male who presented to the emerged part with chief complaint of epistaxis. On the differential diagnose includes but not limited to anterior epistaxis, posterior epistaxis, epistaxis is resolved. Patient is not bleeding currently here in the emergency department at the time my exam we will observe the patient to ensure that he does not have any further bleeding. Patient was observed here in the emergency department he had no further bleeding noted. Patient ambulated here without any further bleeding. Patient states that he needs to go and as he has an appointment and someone is coming to his house. He is advised to follow-up with his primary care physician return for worsening symptoms or concerns. All question concerns answered discharged home in stable condition. Nursing staff did note that he left before did obtain paperwork. Discharge Plan Triage Chief Complaint: Nosebleed ED Provider: Gary Matias Dx/Rx/DC Orders Clinical Impression: Epistaxis Prescriptions: No Action atorvastatin 40 mg tablet 40 mg PO QDAY tamsulosin 0.4 mg capsule 0.4 mg PO QHS Patient Comments: Take 1 capsule by mouth daily at bedtime. aspirin 81 MG tablet,chewable 81 mg PO DAILY pramipexole 1 MG tablet 1 mg PO QHS Qty: 30 0RF carvedilol 6.25 mg tablet 6.25 mg PO BID Qty: 180 3RF rivaroxaban 15 mg tablet 15 mg PO DAILY Qty: 90 3RF Rx Instructions: must administer with evening meal losartan 50 mg tablet 50 mg PO DAILY Qty: 90 3RF Primary Care Provider: Anupam Ge Referrals: Anupam Ge MD [Primary Care Provider] - Activity Restrictions/Additional Instructions: Follow-up with primary care physician outpatient setting. Return with worsening symptoms or concerns. Print Language: Belarusian Disposition Disposition: Home, Self Care Discharge Date/Time: 06/08/24 08:33
== END 2024-06-08 08:33 | disposition home or self-care (01) ==
PROVIDERS: Emergency Provider Emergency Medicine; PCP Family Medicine; Visit Provider Emergency Medicine
DX: R04.0 Epistaxis (principal); I11.0 Hypertensive heart disease with heart failure; I50.22 Chronic systolic (congestive) heart failure; I48.0 Paroxysmal atrial fibrillation; E78.5 Hyperlipidemia, unspecified; I25.5 Ischemic cardiomyopathy; I25.10 Atherosclerotic heart disease of native coronary artery without angina pectoris; Z79.01 Long term (current) use of anticoagulants; F32.A Depression, unspecified; N40.0 Benign prostatic hyperplasia without lower urinary tract symptoms; Z79.82 Long term (current) use of aspirin; Z79.899 Other long term (current) drug therapy; Z87.891 Personal history of nicotine dependence; Z95.1 Presence of aortocoronary bypass graft
CPT/HCPCS: 99282